=== PATIENT | male | born 1990 | race Caucasian/White ===

== ENCOUNTER 2020-02-16 09:34 | Emergency (ER) | payer OTHER, SELFPAY ==
[2020-02-16 09:41] VITALS: BP 127/63; PULSE 104; RESP 16; TEMP 36.8; O2SAT 96; BMI 23.6
--- NOTE | 2020-02-16 09:46 | XR_ITS ---
EXAMINATION: XR LUMBOSACRAL SPINE CLINICAL INFORMATION: Pain COMPARISON: Previous x-ray November 2011 TECHNIQUE: Three views of the lumbosacral spine. FINDINGS: Bone alignment is normal. No fracture or dislocation is seen. The disc spaces are normal. Paraspinal soft tissues are normal. XR/XR lumbar spine 2-3V IMPRESSION: Unremarkable examination.
--- NOTE | 2020-02-16 09:46 | ED.BACK ---
HPI - Back Pain/Injury General Chief Complaint: Back Pain/Injury Stated Complaint: BACK PAIN Time Seen by Provider: 02/16/20 09:46 Source: patient Mode of arrival: ambulatory Limitations: no limitations History of Present Illness MD elicited complaint: back pain Pertinent past history: prior back pain (not as bad) Onset (ago): week(s) (1) Timing: constant Severity: severe Similar Symptoms Previously: No Quality: aching and spasming Location: lumbar spine Radiation: none Exacerbating factors: movement, sitting upright and walking Relieving factors: none Context: unknown Associated symptoms: difficulty walking Treatments prior to arrival: other (topical lidocaine patch from pharmacy) Related Data Previous Rx's Medication Instructions Recorded diazepam [Valium] 5 mg PO TID PRN #10 tab 02/16/20 ibuprofen 600 mg PO Q6H PRN #30 tab 02/16/20 prednisone 40 mg PO DAILY 4 Days #8 tab 02/16/20 Allergies Allergy/AdvReac Type Severity Reaction Status Date / Time No Known Allergies Allergy Unverified 12/31/19 16:53 Review of Systems Review of Systems: Constitutional : No Weight loss, No Fever, No Chills, ENT/Mouth : No Hearing loss, No Ear Pain, No Nasal Congestion, No Sinus Pain, No Hoarseness, No sore throat, No Rhinorrhea, No Swallowing Difficulty Cardiovascular : No Chest Pain, No SOB Respiratory : No Cough, No Dyspnea Gastrointestinal : No Nausea, No Vomiting, No Diarrhea, No abdominal Pain, No Hematochezia, No Melena Genitourinary : No Dysuria, No Urinary Frequency, No Hematuria, No Urinary Incontinence, Musculoskeletal : positive back pain Skin : No Skin Lesions, No rash Neuro : No Weakness, No Numbness, No Paresthesias, no loss of bowel or bladder incontinence, no saddle anesthesia All other ROS reviewed and are negative PMFSH Past Medical History Attestation statement: The following information was validated with the patient. Medical History Substance abuse Social History Social History (Updated 02/16/20 @ 09:53 by Chichi Cronin DO) Smoking Status: Current every day smoker Use of substances other than those prescribed or required for medical reasons: Yes Substance Use Type: Crack/Cocaine and Marijuana Substance Use Type Other:: adamantly denies IV drug abuse Last Used Substance: Just Prior to Admission Advance Directives: No Advance Directives Information Provided: Yes Physical Exam Vital Signs: Vital Signs: Vital Signs Temp Pulse Resp BP Pulse Ox 02/16/20 10:40 98.2 F 77 16 118/67 02/16/20 09:41 98.2 F 104 H 16 127/63 96 Body Mass Index 23.6 Appearance: Alert. Oriented X3. No acute distress. In pain Eyes: Pupils equal, round and reactive to light. ENT: Pharynx normal. Neck: Normal inspection. Neck supple. CVS: Normal heart rate and rhythm. Pulses normal. Respiratory: No respiratory distress. Breath sounds normal. Abdomen: Soft and nontender. Back: ttp along lower lumbar pain, no CVA ttp Skin: Skin warm and dry. Normal skin color. Normal skin turgor. Extremities: No lower extremity edema. No calf ttp Neuro: Oriented X 3. No motor deficit. No sensory deficit. SILT inner thigh, L5 5/5 bilaterally Course Course Course Narrative: feels better, stable for DC MDM - Back Pain/Injury MDM Narrative Medical decision making narrative: 29 yo male with lower back pain no b/b incontinence, no saddle anesthesia, no fevers, NV intact, NO IVDA abuse at this time will need xray of lumbar spine, offered IV medications - declined, will start on valium and steroids, dispo per results and findings. Discharge Plan Discharge Clinical Impression: Strain of lumbar region Qualifiers: Encounter type: initial encounter Qualified Code(s): S39.012A - Strain of muscle, fascia and tendon of lower back, initial encounter Patient Disposition: Home, Self-Care Instructions: Acute Low Back Pain (ED) Additional Instructions: return to ED for any worsening symptoms or concerns Prescriptions: New prednisone 20 mg tablet 40 mg PO DAILY 4 Days Qty: 8 RF: 0 ibuprofen 600 mg tablet 600 mg PO Q6H PRN (Reason: pain) Qty: 30 RF: 0 diazepam [Valium] 5 mg tablet 5 mg PO TID PRN (Reason: muscle spasm) Qty: 10 RF: 0 Referrals: Gabe Cooley MD [Physician] - 2 days Herman Herrera MD [Physician] - 2 days (follow up with any provider) Leighann Gaona NP [Nurse Practitioner] - 2 days Stand Alone Forms: Work/School Release
[2020-02-16] MEDS: predniSONE 20 MG TABLET 60 MG PO (10:02)
[2020-02-16] MEDS: diazePAM 5 MG TABLET PO (10:02)
[2020-02-16 10:40] VITALS: BP 118/67; PULSE 77; RESP 16; TEMP 36.8
[2020-02-16 12:05] VITALS: BP 126/81; PULSE 79; RESP 18
== END 2020-02-16 12:07 | disposition home or self-care (01) ==
PROVIDERS: Emergency Provider Emergency Medicine
DX: S39.012A Strain of muscle, fascia and tendon of lower back, initial encounter (principal); F14.90 Cocaine use, unspecified, uncomplicated; F15.90 Other stimulant use, unspecified, uncomplicated; F17.200 Nicotine dependence, unspecified, uncomplicated; X58.XXXA Exposure to other specified factors, initial encounter; Y93.9 Activity, unspecified; Y92.9 Unspecified place or not applicable; Y99.9 Unspecified external cause status; Z79.899 Other long term (current) drug therapy; Z71.6 Tobacco abuse counseling
CPT/HCPCS: 72100; 96374; 96375; 99284

== ENCOUNTER 2020-05-09 21:31 | Emergency (ER) | payer OTHER, SELFPAY ==
[2020-05-09 21:32] VITALS: BP 106/84; BP 173/101; PULSE 115; PULSE 88; RESP 16; TEMP 36.7; O2SAT 97; O2SAT 99; BMI 28.8
--- NOTE | 2020-05-09 21:58 | ED_ITS ---
HPI - Overdose General Chief Complaint: Overdose Stated Complaint: overdose Time Seen by Provider: 05/09/20 21:58 Source: patient and EMS Mode of arrival: ambulatory History of Present Illness HPI Narrative: 29-year-old male brought in by ambulance after was found unintentionally/accidently overdosed on heroin, patient required 12 mg of Narcan given by EMS, patient emergency department is awake, alert, oriented x3 insisting to leave against medical advice after a lengthy discussion we will watch the patient for 30 minutes if he stay awake with stable vital sign will discharge. Patient attended to use 3 bags of her min by snoring. Related Data Previous Rx's Medication Instructions Recorded diazepam [Valium] 5 mg PO TID PRN #10 tab 02/16/20 ibuprofen 600 mg PO Q6H PRN #30 tab 02/16/20 prednisone 40 mg PO DAILY 4 Days #8 tab 02/16/20 Allergies Allergy/AdvReac Type Severity Reaction Status Date / Time No Known Allergies Allergy Unverified 12/31/19 16:53 Review of Systems Review of Systems: All other systems are reviewed and are negative Constitutional: Reports as per HPI and Reports no additional constitutional complaints Eyes: Reports as per HPI and Reports no additional eye complaints Reports system reviewed and no additional complaints, except as documented Cardiovascular: Reports as per HPI and Reports no additional cardiovascular complaints Respiratory: Reports as per HPI and Reports no additional respiratory complaints Gastrointestinal: Reports as per HPI and Reports no additional gastrointestinal complaints Genitourinary: Reports no additional female genitourinary complaints Musculoskeletal: Reports no additional musculoskeletal complaints Skin/Breast: Reports system reviewed and no additional complaints, except as docu Psychiatric: Reports no additional psychiatric complaints Endocrine: Reports no additional endocrine complaints Hematologic/Lymphatic: Reports no additional hematologic/lymphatic complaints Allergic/Immunologic: Reports no additional allergic/immunologic complaints Reports system reviewed and no additional complaints, except as documented and Reports Abnormal speech present [facility] Past Medical History Medical History Substance abuse Social History Social History Smoking Status: Current every day smoker Substance Use Type: Crack/Cocaine and Marijuana Advance Directives: No Advance Directives Information Provided: No Physical Exam Vital Signs: Vital Signs: Last Vital Signs Temp 98.0 F 01/25/21 21:32 Pulse 88 05/09/20 21:32 Resp 16 05/09/20 21:32 BP 106/84 05/09/20 21:32 Pulse Ox 99 05/09/20 21:32 Body Mass Index 28.8 Vital signs have been reviewed as normal and appeared to be correct. Blood pressure normal. Heart rate normal. Respiration rate normal. Temperature normal. Oxygen saturation normal. Appearance: Alert. Oriented X3. No acute distress. Head: Normal external exam. Normocephalic. Atraumatic. No Amos signs noted. No raccoon eyes noted Eyes: PERRLA. EOMI. Conjunctiva and sclera normal. Eyelids normal. ENT: EAC normal. TM's Normal. Pharynx normal. Uvula midline. Moist mucous membranes. No trismus noted. No drooling noted. No muffled voice noted. Neck: Normal inspection. Neck supple. FROM. No adenopathy. Thyroid Normal. No meningeal signs. No neck mass noted. CVS: Normal heart rate and rhythm. Heart sound normal. No murmurs noted. Pulses normal throughout. Respiratory: No respiratory distress. Painless inspiration. Breath sounds normal. No wheezes/rales/rhonchi noted. Chest nontender. No accessory muscle usage noted or decreased air movement noted. Abdomen: Soft and nontender. Bowel sounds normal in all 4 quadrants. No distention noted. No organomegaly noted. No visible injury noted. Back: No CVA tenderness. Full range of motion noted. Skin: Skin warm and dry. Normal skin color. Normal skin turgor. No rashes/lesions/lacerations noted. Extremities: No lower extremity edema. Extremities exhibit normal range of motion. Extremities nontender. Neuro: Oriented X 3. No motor deficit. No sensory deficit. Reflexes normal. Course Course Course Narrative: Assessment and plan. [age] year male came in after accidentally overdosed on 3 bags of heroin, patient required 12 mg of Narcan at the scene, patient emergency department is awake, alert, oriented x3, patient wants to go home now, after lengthy discussion will observe the patient for the next 30 minutes if he maintained stable vital signs and normal exam will discharge home. Discharge Plan Discharge Clinical Impression: Accidental overdose of heroin Patient Disposition: Home, Self-Care Instructions: Polysubstance Abuse (ED) Prescriptions: No Action prednisone 20 mg tablet 40 mg PO DAILY 4 Days Qty: 8 RF: 0 ibuprofen 600 mg tablet 600 mg PO Q6H PRN (Reason: pain) Qty: 30 RF: 0 diazepam [Valium] 5 mg tablet 5 mg PO TID PRN (Reason: muscle spasm) Qty: 10 RF: 0 Referrals: Physician,Unknown [Primary Care Provider] - 2 days Interventions: ED Discharge Assessment Last Done: 05/09/20 21:59
[2020-05-09 22:29] VITALS: BP 106/84; PULSE 88; RESP 15; TEMP 36.7; O2SAT 99
== END 2020-05-09 22:40 | disposition home or self-care (01) ==
PROVIDERS: Emergency Provider Emergency Medicine
DX: T40.1X1A Poisoning by heroin, accidental (unintentional), initial encounter (principal); Y92.9 Unspecified place or not applicable; F17.200 Nicotine dependence, unspecified, uncomplicated; F19.10 Other psychoactive substance abuse, uncomplicated
CPT/HCPCS: 99283; 99285

== ENCOUNTER 2020-05-22 01:27 | Emergency (ER) | payer OTHER, SELFPAY ==
[2020-05-22 01:38] VITALS: BMI 23.6
[2020-05-22 01:40] VITALS: RESP 16
[2020-05-22 01:55] VITALS: RESP 16
[2020-05-22 01:59] VITALS: RESP 16
[2020-05-22 02:04] VITALS: RESP 16
--- NOTE | 2020-05-22 02:10 | PC.NURSE ---
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 PATIENT PLACED IN 4 POINTS AND SPIT BELCHER APPLIED. MD AT BEDSIDE FOR EVALUATION. PATIENT SWEARING AND SPITTING. AFTER ABOUT 5 MINUTES PATIENT PROMISING TO BE CALM AND COOPERATIVE WITH CARE. MD REEVALUATING PATIENT TRIALLED OFF OF RESTRAINTS. PATIENT ABLE TO COME OUT OF RESTRAINTS WITHOUT INCIDENT.
--- NOTE | 2020-05-22 02:16 | ED_ITS ---
HPI - General Adult General Chief complaint: Overdose Stated complaint: overdose Time Seen by Provider: 05/22/20 02:15 Source: patient and EMS Mode of arrival: EMS Limitations: no limitations History of Present Illness HPI narrative: This is a 29-year-old male brought in by ambulance after was found unresponsive with a potential suspicion of drug overdose, patient received 12 mg of Narcan in the field and was transported to the hospital, in the emergency department patient was belligerent, aggressive, spitting and swinging to the security staff, patient require 4 point soft strain and face mask, was able to talk to the patient and come down, restrained was discontinued gradually limp by limp after 50 minutes. Patient admitted to using 2 bags of heroin. Patient declined SI or HI. Related Data Previous Rx's Medication Instructions Recorded diazepam [Valium] 5 mg PO TID PRN #10 tab 02/16/20 ibuprofen 600 mg PO Q6H PRN #30 tab 02/16/20 prednisone 40 mg PO DAILY 4 Days #8 tab 02/16/20 Allergies Allergy/AdvReac Type Severity Reaction Status Date / Time No Known Allergies Allergy Unverified 12/31/19 16:53 Review of Systems Review of Systems: All other systems are reviewed and are negative Constitutional: Reports as per HPI and Reports no additional constitutional complaints Eyes: Reports as per HPI and Reports no additional eye complaints Reports system reviewed and no additional complaints, except as documented Cardiovascular: Reports as per HPI and Reports no additional cardiovascular complaints Respiratory: Reports as per HPI and Reports no additional respiratory complaints Gastrointestinal: Reports as per HPI and Reports no additional gastrointestinal complaints Genitourinary: Reports no additional female genitourinary complaints Musculoskeletal: Reports no additional musculoskeletal complaints Skin/Breast: Reports system reviewed and no additional complaints, except as docu Psychiatric: Reports no additional psychiatric complaints Endocrine: Reports no additional endocrine complaints Hematologic/Lymphatic: Reports no additional hematologic/lymphatic complaints Allergic/Immunologic: Reports no additional allergic/immunologic complaints Reports system reviewed and no additional complaints, except as documented and Reports Abnormal speech present [facility] [place] Past Medical History Medical History Substance abuse Social History Social History Smoking Status: Unknown if ever smoked Use of substances other than those prescribed or required for medical reasons: Yes Substance Use Type: Heroin Advance Directives: No Advance Directives Information Provided: No Physical Exam Vital Signs: Vital Signs: Last Vital Signs Pulse 76 05/22/20 03:52 Resp 16 05/22/20 03:52 BP 102/45 L 05/22/20 03:52 Pulse Ox 95 05/22/20 03:52 Body Mass Index 23.6 Vital signs have been reviewed as normal and appeared to be correct. Blood pressure normal. Heart rate normal. Respiration rate normal. Temperature normal. Oxygen saturation normal. Appearance: Alert. Oriented X3. No acute distress. Initially patient was belligerent, with compulsive behavior. Head: Normal external exam. Normocephalic. Atraumatic. No Amos signs noted. No raccoon eyes noted Eyes: PERRLA. EOMI. Conjunctiva and sclera normal. Eyelids normal. ENT: TM's Normal. Pharynx normal. Uvula midline. Moist mucous membranes. No trismus noted. No drooling noted. No muffled voice noted. Neck: Normal inspection. Neck supple. FROM. No adenopathy. Thyroid Normal. No meningeal signs. No neck mass noted. CVS: Normal heart rate and rhythm. Heart sound normal. No murmurs noted. Pulses normal throughout. Respiratory: No respiratory distress. Painless inspiration. Breath sounds normal. No wheezes/rales/rhonchi noted. Chest nontender. No accessory muscle usage noted or decreased air movement noted. Abdomen: Soft and nontender. Bowel sounds normal in all 4 quadrants. No distention noted. No organomegaly noted. No visible injury noted. Back: No CVA tenderness. Full range of motion noted. Skin: Skin warm and dry. Normal skin color. Normal skin turgor. No rashes/lesions/lacerations noted. Extremities: No lower extremity edema. Extremities exhibit normal range of motion. Extremities nontender. Neuro: Oriented X 3. No motor deficit. No sensory deficit. Reflexes normal. Course Reevaluation(s) Reevaluation #1: Patient is off 4 point restraint, patient now is calm, cooperative, coherent, following commands, and willing to stay in the ED until he is ready to discharge. Time: 02:40 Reevaluation #2: Patient slept most of the night, patient remained calm, cooperative and coherent. Patient now is awake and alert and oriented x3. Patient would like to go home, Suboxone [facility] was discussed with the patient and patient declined. Time: 05:12 Discharge Plan Discharge Clinical Impression: Drug overdose Patient Disposition: Home, Self-Care Instructions: Polysubstance Abuse (ED) Prescriptions: No Action prednisone 20 mg tablet 40 mg PO DAILY 4 Days Qty: 8 RF: 0 ibuprofen 600 mg tablet 600 mg PO Q6H PRN (Reason: pain) Qty: 30 RF: 0 diazepam [Valium] 5 mg tablet 5 mg PO TID PRN (Reason: muscle spasm) Qty: 10 RF: 0 Referrals: Elke Harrell MD [Primary Care Provider] - 2 days
[2020-05-22 02:25] VITALS: BP 109/59; PULSE 95; RESP 18; O2SAT 97
--- NOTE | 2020-05-22 02:54 | PC.NURSE ---
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 PT PLACED ON RESTRAINTS AND MONITORED FOR SAFETY. PROVIDER IN TO DISCUSS REMOVAL OF RESTRAINS IF COOPERATIVE. PT IS COOPERATIVE AND RESTRAINTS REMOVED. PT IS SLEEPING AND BEING MONITORED
[2020-05-22 03:52] VITALS: BP 102/45; PULSE 76; RESP 16; O2SAT 95
== END 2020-05-22 05:25 | disposition home or self-care (01) ==
PROVIDERS: Emergency Provider Emergency Medicine; PCP Internal Medicine
DX: T40.1X1A Poisoning by heroin, accidental (unintentional), initial encounter (principal); R40.4 Transient alteration of awareness; X58.XXXA Exposure to other specified factors, initial encounter; F19.10 Other psychoactive substance abuse, uncomplicated
CPT/HCPCS: 99285

== ENCOUNTER 2020-05-26 22:36 | Emergency (ER) | payer OTHER, SELFPAY ==
[2020-05-26 22:48] VITALS: BP 120/78; BP 127/69; PULSE 79; PULSE 88; RESP 20; TEMP 36.6; O2SAT 97; O2SAT 98; BMI 23.6
--- NOTE | 2020-05-26 23:17 | ED.ALCOHOL ---
HPI - Alcohol General Chief Complaint: ETOH/Substance Use Stated Complaint: crisis Time Seen by Provider: 05/26/20 23:10 Source: patient Mode of arrival: ambulatory History of Present Illness HPI narrative: 29-year-old male with a past medical history of ETOH abuse, substance abuse, presenting to the ED per EMS s/p breaking up with his girlfriend in stating I am done with everything in girlfriend calling 911 taking this as suicidal statement. Patient admits to smoking marijuana and drinking a couple beers tonight. Denies SI/HI, fall/trauma or injury. 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 Has a sober ride in the parking lot complaint: alcohol intoxication Related Data Previous Rx's Medication Instructions Recorded diazepam [Valium] 5 mg PO TID PRN #10 tab 02/16/20 ibuprofen 600 mg PO Q6H PRN #30 tab 02/16/20 prednisone 40 mg PO DAILY 4 Days #8 tab 02/16/20 Allergies Allergy/AdvReac Type Severity Reaction Status Date / Time No Known Allergies Allergy Unverified 12/31/19 16:53 Review of Systems Review of Systems: Constitutional: No Fever, No Chills Cardiovascular: No Chest Pain, No SOB Gastrointestinal: No Nausea, No Vomiting, No Abdominal pain Musculoskeletal: No joint pain, No Joint Swelling Skin: No Skin Lesions, No rash Neuro: No Headache Psych: No Depression, No SI/HI/AH/VH, No Social Issues Yes all other systems are reviewed and are negative [facility] Past Medical History Attestation statement: The following information was validated with the patient. Medical History Substance abuse Social History Social History Smoking Status: Unknown if ever smoked Substance Use Type: Heroin Advance Directives: No Physical Exam Vital Signs: Vital Signs: Last Vital Signs Temp 97.9 F 05/26/20 22:48 Pulse 79 05/26/20 22:48 Resp 20 05/26/20 22:48 BP 127/69 05/26/20 22:48 Pulse Ox 97 05/26/20 22:48 Body Mass Index 23.6 Const: General: cooperative, healthy appearing, comfortable, no acute distress, alert and awake Orientation/consciousness: patient oriented x3 Limitations: no limitations HENMT: Head: Yes normal to inspection Ears: hearing grossly normal bilaterally General nose exam: Normal external nose present Face and sinus: Yes normal facial exam Eyes: General: appearance normal, both eyes and all related structures Pupils: Equal, round and reactive pupils present EOM: EOMs intact bilaterally Neck: Neck: Yes normal visual inspection Resp: Effort & Inspection: normal respiratory effort Cardio: Rate: regular rate GI: Inspection: Yes normal to inspection Skin: Rashes: no rashes Wounds: no wounds Neuro: Other: Clinically sober, ambulating in the ED with steady gait General: patient oriented x3 Cranial nerves: Yes Equal, round and reactive pupils present Gait exam (Neuro): Normal gait present Extrem: Other: GIMENEZ General: Yes normal to inspection Psych: Appearance: grossly normal Affect: normal affect Attitude: cooperative Thought process: Normal thought process present Thought content: Normal thought content present, suicidality and no homicidality MDM - Alcohol MDM Narrative Medical decision making narrative: On exam VSS, NAD/well-appearing, moving all extremities, atraumatic, clinically sober, ambulating in the ED with steady gait. Denies SI/HI Will discharge with sober ride Medical Records Attestation: I reviewed the patient's medical records. Discharge Plan Discharge Clinical Impression: Alcoholic intoxication Patient Disposition: Home, Self-Care Instructions: Alcohol Intoxication (ED) Additional Instructions: do not drink alcohol or take drugs it can kill you If you have thoughts of hurting herself or hurting others return to the ED Prescriptions: No Action prednisone 20 mg tablet 40 mg PO DAILY 4 Days Qty: 8 RF: 0 ibuprofen 600 mg tablet 600 mg PO Q6H PRN (Reason: pain) Qty: 30 RF: 0 diazepam [Valium] 5 mg tablet 5 mg PO TID PRN (Reason: muscle spasm) Qty: 10 RF: 0 Referrals: Physician,Unknown [Primary Care Provider] - 2 days
== END 2020-05-26 23:30 | disposition home or self-care (01) ==
PROVIDERS: Emergency Provider Student in an Organized Health Care Education/Training Program
DX: F10.129 Alcohol abuse with intoxication, unspecified (principal); F11.10 Opioid abuse, uncomplicated; F12.90 Cannabis use, unspecified, uncomplicated; Y90.9 Presence of alcohol in blood, level not specified; Z79.899 Other long term (current) drug therapy
CPT/HCPCS: 99283

== ENCOUNTER 2020-05-31 07:44 | Emergency (ER) | payer OTHER, SELFPAY ==
[2020-05-31 07:58] VITALS: BP 130/78; PULSE 74; RESP 16; O2SAT 98; BMI 21.5
--- NOTE | 2020-05-31 08:04 | ED_ITS ---
HPI - Extremity Problem General Chief complaint: Extremity Problem Stated complaint: feet swollen Time Seen by Provider: 05/31/20 08:04 Source: patient Mode of arrival: ambulatory Limitations: no limitations History of Present Illness HPI Narrative: both feet swollen, patient uses cocaine and heroine Complaint: extremity swelling Onset (ago): day(s) Pain Consistency: constant Location: left, right and lower extremity Quality: burning and stabbing Related Data Previous Rx's Medication Instructions Recorded diazepam [Valium] 5 mg PO TID PRN #10 tab 02/16/20 ibuprofen 600 mg PO Q6H PRN #30 tab 02/16/20 prednisone 40 mg PO DAILY 4 Days #8 tab 02/16/20 Allergies Allergy/AdvReac Type Severity Reaction Status Date / Time No Known Allergies Allergy Unverified 12/31/19 16:53 Review of Systems Constitutional: Constitutional: Reports no additional constitutional complaints Eyes: Eyes: Reports no additional eye complaints ENT: Denies dizziness Cardiovascular: Cardiovascular: Reports no additional cardiovascular complaints Respiratory: Respiratory: Reports as per HPI Gastrointestinal: Gastrointestinal: Reports no additional gastrointestinal complaints Musculoskeletal: Musculoskeletal: Reports no additional musculoskeletal complaints Integumentary/Breasts: Skin/Breast: Denies rash Neurologic: Reports system reviewed and no additional complaints, except as documented, Denies dizziness and Denies Sensory deficit (Neuro) Psychiatric: Psychiatric: Denies anxiety [facility] Past Medical History Medical History Substance abuse Social History Social History Smoking Status: Unknown if ever smoked Substance Use Type: Heroin Advance Directives: Yes Advance Directives Information Provided: Yes Advance Directives on File: No Physical Exam Vital Signs: Vital Signs: Last Vital Signs Temp 98.6 F 05/31/20 09:19 Pulse 67 05/31/20 09:19 Resp 16 05/31/20 09:19 BP 120/56 L 05/31/20 09:19 Pulse Ox 97 05/31/20 09:19 Body Mass Index 21.5 Const: Other: thin unkept Nutritional Appearance: thin Orientation/consciousness: oriented to person and patient oriented x3 Limitations: no limitations HENMT: Head: Yes normal to inspection Ears: external ears normal General nose exam: Normal external nose present Mouth: Normal oral and palatal mucosa present and oropharynx normal Throat: Yes posterior oropharynx normal Eyes: General: appearance normal, both eyes and all related structures Neck: Other: supple Neck: Yes normal visual inspection Chest: Chest palpation & inspection: normal inspection of the chest Resp: Auscultation: clear to auscultation bilaterally Cardio: Jugular venous distension: no JVD Rate: regular rate Rhythm: regular rhythm Heart sounds: S1 normal heart sound present and S2 normal heart sound present GI: Inspection: Yes normal to inspection Palpation (GI): Soft to palpation, nontender and No hepatosplenomegaly present Auscultation: normal bowel sounds : General: Yes no CVA tenderness Back/Spine/Pelvis: Back: no CVA tenderness Skin: Other: erythema greater in left foot and left ankle Neuro: General: oriented to person and patient oriented x3 Cranial nerves: Yes CN's II-XII intact bilaterally Motor exam (neuro): 5/5 motor strength present throughout Sensory Exam: No Sensory deficit (Neuro) Extrem: Other: Both feet swollen with left greater than right and left foot redness. Good bilateral DP pulses Psych: Appearance: grossly normal Course Course Course Narrative: with elevated WBC and erythema will continue to treat for cellulitis MDM - Extremity (Nontraumatic) MDM Narrative Medical decision making narrative: cellulitis no evidence of sepsis Lab Data Result diagrams: 05/31/20 08:38 05/31/20 08:38 Labs: Lab Results 05/31/20 05/31/20 05/31/20 Range/Units 08:38 08:38 08:38 WBC 12.4 H (4.8-10.8) X10*3/uL RBC 4.47 L (4.60-5.80) X10*6/uL Hgb 15.1 (14.0-18.0) g/dl Hct 46.3 (42-52) % MCV 103.6 H (80-98) fL MCH 33.8 H (27.0-33.0) pg MCHC 32.6 (31.0-36.0) g/dl RDW 11.9 (11.0-16.0) % Plt Count 269 (160-400) X10*3/uL MPV 9.8 (9.4-12.4) fL Immature Gran % (Auto) 0.3 (0.0-0.4) % Neut % (Auto) 81.7 H (45-73) % Lymph % (Auto) 6.5 L (20-40) % [place] % (Auto) 10.1 (2-11) % Eos % (Auto) 0.8 (0-4) % Baso % (Auto) 0.6 (0-2) % Lymph # (Auto) 0.8 L (1.2-4.9) X10*3/uL [place] # (Auto) 1.3 H (0.1-1.2) X10*3/uL Eos # (Auto) 0.1 (0.0-0.4) X10*3/uL Baso # (Auto) 0.1 (0.0-0.2) X10*3/uL Abs Immat Gran (auto) 0.04 H (0.00-0.03) X10*3/uL Absolute Neuts (auto) 10.2 H (2.0-8.3) X10*3/uL Absolute Nucleated RBC 0.000 (0.0-0.012) X10*3/uL Nucleated RBC % (auto) 0.0 (0.0-0.2) /100WBC Sodium 138 (135-145) mmol/L Potassium 4.3 (3.3-5.1) mmol/L Chloride 97 (96-108) mmol/L Carbon Dioxide 32 H (22-29) mmol/L Anion Gap 13 (12-20) BUN 13 (9-16) mg/dL Creatinine 0.89 (0.5-1.4) mg/dL Estim Creat Clear Calc 115.7 Estimated GFR > 60 Random Glucose 100 (60-115) mg/dL Calcium 9.4 (8.4-10.2) mg/dL Total Bilirubin 0.9 (0.0-1.0) mg/dL Direct Bilirubin 0.3 (0.0-0.5) mg/dL AST 23 (5-37) U/L ALT 13 (0-40) U/L Alkaline Phosphatase 74 (39-117) U/L Total Creatine Kinase 181 H (38-174) U/L Total Protein 7.5 (6.5-8.0) g/dL Albumin 4.6 (3.5-5.0) g/dL Urine Color Urine Appearance Urine pH (5.0-8.0) Ur Specific Ethel (1.005-1.025) Urine Protein (NEG-TRACE) MG/DL Urine Glucose (UA) (NEG) MG/DL Urine Ketones (NEG) MG/DL Urine Blood (NEG) Urine Nitrite (NEG) Ur Leukocyte Esterase (NEG) 05/31/20 Range/Units 10:36 WBC (4.8-10.8) X10*3/uL RBC (4.60-5.80) X10*6/uL Hgb (14.0-18.0) g/dl Hct (42-52) % MCV (80-98) fL MCH (27.0-33.0) pg MCHC (31.0-36.0) g/dl RDW (11.0-16.0) % Plt Count (160-400) X10*3/uL MPV (9.4-12.4) fL Immature Gran % (Auto) (0.0-0.4) % Neut % (Auto) (45-73) % Lymph % (Auto) (20-40) % [place] % (Auto) (2-11) % Eos % (Auto) (0-4) % Baso % (Auto) (0-2) % Lymph # (Auto) (1.2-4.9) X10*3/uL [place] # (Auto) (0.1-1.2) X10*3/uL Eos # (Auto) (0.0-0.4) X10*3/uL Baso # (Auto) (0.0-0.2) X10*3/uL Abs Immat Gran (auto) (0.00-0.03) X10*3/uL Absolute Neuts (auto) (2.0-8.3) X10*3/uL Absolute Nucleated RBC (0.0-0.012) X10*3/uL Nucleated RBC % (auto) (0.0-0.2) /100WBC Sodium (135-145) mmol/L Potassium (3.3-5.1) mmol/L Chloride (96-108) mmol/L Carbon Dioxide (22-29) mmol/L Anion Gap (12-20) BUN (9-16) mg/dL Creatinine (0.5-1.4) mg/dL Estim Creat Clear Calc Estimated GFR Random Glucose (60-115) mg/dL Calcium (8.4-10.2) mg/dL Total Bilirubin (0.0-1.0) mg/dL Direct Bilirubin (0.0-0.5) mg/dL AST (5-37) U/L ALT (0-40) U/L Alkaline Phosphatase (39-117) U/L Total Creatine Kinase (38-174) U/L Total Protein (6.5-8.0) g/dL Albumin (3.5-5.0) g/dL Urine Color YELLOW Urine Appearance CLEAR Urine pH 5.5 (5.0-8.0) Ur Specific Ethel <= 1.005 (1.005-1.025) Urine Protein NEG (NEG-TRACE) MG/DL Urine Glucose (UA) NEG (NEG) MG/DL Urine Ketones NEG (NEG) MG/DL Urine Blood NEG (NEG) Urine Nitrite NEG (NEG) Ur Leukocyte Esterase NEG (NEG) Discharge Plan Discharge Prescriptions: No Action prednisone 20 mg tablet 40 mg PO DAILY 4 Days Qty: 8 RF: 0 ibuprofen 600 mg tablet 600 mg PO Q6H PRN (Reason: pain) Qty: 30 RF: 0 diazepam [Valium] 5 mg tablet 5 mg PO TID PRN (Reason: muscle spasm) Qty: 10 RF: 0
--- NOTE | 2020-05-31 08:21 | PC.NURSE ---
pt has swelling edema bilaterally in both feet. pedal pulses and posterior tibialis pulses located with Doppler in both extremities.
[2020-05-31 08:45] LABS: MANUAL DIFF FLAG NO
[2020-05-31 08:46] LABS: Basophils Absolute Auto 0.1 X10*3/uL (0.0-0.2); Basophils Percent Auto 0.6 % (0-2); Eosinophils Absolute Auto 0.1 X10*3/uL (0.0-0.4); Eosinophils Percent Auto 0.8 % (0-4); Hematocrit 46.3 % (42-52); Hemoglobin 15.1 g/dl (14.0-18.0); Imm Gran Abs Auto 0.04 X10*3/uL (0.00-0.03); Imm Gran Pct Auto 0.3 % (0.0-0.4); Lymphocytes Absolute Auto 0.8 X10*3/uL (1.2-4.9); Lymphocytes Percent Auto 6.5 % (20-40); Mean Corpuscular HGB Conc 32.6 g/dl (31.0-36.0); Mean Corpuscular Hemoglobin 33.8 pg (27.0-33.0); Mean Corpuscular Volume 103.6 fL (80-98); Mean Platelet Volume 9.8 fL (9.4-12.4); Monocytes Absolute Auto 1.3 X10*3/uL (0.1-1.2); Monocytes Percent Auto 10.1 % (2-11); Neutrophils Absolute Auto 10.2 X10*3/uL (2.0-8.3); Neutrophils Percent Auto 81.7 % (45-73); Platelet Count 269 X10*3/uL (160-400); Red Blood Count 4.47 X10*6/uL (4.60-5.80); Red Cell Distribution Width 11.9 % (11.0-16.0); White Blood Count 12.4 X10*3/uL (4.8-10.8)
[2020-05-31] MEDS: Ketorolac Tromethamine 30 MG/ML VIAL IVPUSH (08:50)
[2020-05-31 09:19] VITALS: BP 120/56; PULSE 67; RESP 16; TEMP 37; O2SAT 97
--- NOTE | 2020-05-31 09:23 | MHC.RECOVSUP ---
Recovery Support note: Patient is a 29 year old Mauritanian speaking male who presented to [facility] ED due to ankle swelling. Patient reports recent heroin use. This principal technical writer met with patient to discuss his heroin use and treatment options. Patient reports a desire to stop using heroin and states that he has not made any efforts to stop in the past. Patient reports he is interested in going to detox however reported he may not be ready to go today. Explained to patient the process of getting into a detox facility. Discussed MAT with patient. Patient reports he is not interested in methadone or Suboxone at this time. Discussed outpatient therapy and IOP with patient. Patient accepted information on IOP and [facility]. Patient reports he is currently seeing a therapist. Provided patient with information to contact this principal technical writer if he would like additional support info or assistance securing a detox bed.
[2020-05-31 09:27] LABS: Alanine Aminotransferase 13 U/L (0-40); Albumin Level 4.6 g/dL (3.5-5.0); Alkaline Phosphatase 74 U/L (39-117); Anion Gap 13 (12-20); Aspartate Amino Transferase 23 U/L (5-37); Bilirubin Direct 0.3 mg/dL (0.0-0.5); Bilirubin Total 0.9 mg/dL (0.0-1.0); Blood Urea Nitrogen 13 mg/dL (9-16); Calcium 9.4 mg/dL (8.4-10.2); Carbon Dioxide 32 mmol/L (22-29); Chloride 97 mmol/L (96-108); Creatinine Clr Calc Pharmacy 115.7; Estimated Glomerular Filt Rate > 60; Glucose Random 100 mg/dL (60-115); Potassium 4.3 mmol/L (3.3-5.1); Sodium 138 mmol/L (135-145); Total Protein 7.5 g/dL (6.5-8.0)
[2020-05-31 10:47] LABS: Glucose Urine UA NEG (NEG); Leukocyte Esterase Urine NEG (NEG); Nitrite Urine NEG (NEG); PH 5.5 (5.0-8.0); Specific Gravity - Urine <= 1.005 (1.005-1.025); Urine Blood NEG (NEG); Urine Ketones NEG (NEG); Urine Protein NEG (NEG-TRACE)
[2020-05-31 10:51] LABS: Appearance Urine CLEAR; Color Urine YELLOW
[2020-05-31 10:59] VITALS: BP 113/61; PULSE 72; RESP 16; TEMP 36.9; O2SAT 95
== END 2020-05-31 11:26 | disposition home or self-care (01) ==
PROVIDERS: Emergency Provider Emergency Medicine
DX: L03.116 Cellulitis of left lower limb (principal); L03.115 Cellulitis of right lower limb; F19.10 Other psychoactive substance abuse, uncomplicated
CPT/HCPCS: 36415; 80048; 80076; 81003; 82550; 85025; 96365; 96375; 99284; J0690; J1885

== ENCOUNTER 2020-10-06 06:33 | Emergency (ER) | payer OTHER, SELFPAY ==
[2020-10-06 06:41] VITALS: BP 121/71; PULSE 86; RESP 18; TEMP 36.7; O2SAT 95; BMI 23.6
--- NOTE | 2020-10-06 07:45 | ED_ITS ---
HPI - Back Pain/Injury General Chief Complaint: Back Pain/Injury Stated Complaint: injured back @ work [employer] Time Seen by Provider: 10/06/20 07:45 Source: patient Mode of arrival: ambulatory Limitations: no limitations History of Present Illness HPI Narrative: 30 yo male otherwise healthy here with lifting injury to low back on Saturday at his new job causing severe worsening pain as well as some tingling in his L leg, no prior injuries like this in the past but after review of EMR the patient has been seen for back pain in the past as well as using heroin MD elicited complaint: back injury Pertinent past history: prior back pain Onset (ago): day(s) (2) Timing: constant and progressively worsening Severity: severe Similar Symptoms Previously: Yes Quality: sharp Location: lumbar spine Radiation: left leg below the knee Exacerbating factors: movement, walking and coughing/sneezing Relieving factors: immobilization Context: while lifting Associated symptoms: numbness (feels tingling in his left foot) Work related injury: Yes Related Data Previous Rx's Medication Instructions Recorded diazepam [Valium] 5 mg PO TID PRN #10 tab 02/16/20 ibuprofen 600 mg PO Q6H PRN #30 tab 02/16/20 prednisone 40 mg PO DAILY 4 Days #8 tab 02/16/20 cephalexin 500 mg PO QID #40 cap 05/31/20 diazepam [Valium] 5 mg PO TID PRN #10 tab 10/06/20 ibuprofen 600 mg PO Q6H PRN #30 tab 10/06/20 lidocaine 1 patch TOPICAL DAILY PRN #10 ea 10/06/20 prednisone 40 mg PO DAILY 4 Days #8 tab 10/06/20 Allergies Allergy/AdvReac Type Severity Reaction Status Date / Time No Known Allergies Allergy Unverified 12/31/19 16:53 Review of Systems Review of Systems: Constitutional : No Weight loss, No Fever, No Chills, ENT/Mouth : No Hearing loss, No Ear Pain, No Nasal Congestion, No Sinus Pain, No Hoarseness, No sore throat, No Rhinorrhea, No Swallowing Difficulty Cardiovascular : No Chest Pain, No SOB Respiratory : No Cough, No Dyspnea Gastrointestinal : No Nausea, No Vomiting, No Diarrhea, No abdominal Pain, No Hematochezia, No Melena Genitourinary : No Dysuria, No Urinary Frequency, No Hematuria, No Urinary Incontinence, Musculoskeletal : positive back pain Skin : No Skin Lesions, No rash Neuro : No Weakness, No Numbness, pos Paresthesias, no loss of bowel or bladder incontinence, no saddle anesthesia PMF Past Medical History Attestation statement: The following information was validated with the patient. Medical History Back pain Substance abuse Social History Social History (Updated 10/06/20 @ 08:09 by Chichi Cronin DO) Alcohol intake: unknown Patient Tobacco Use Status: Tobacco use Unknown Use of substances other than those prescribed or required for medical reasons: Unknown Substance Use Type: Former Substance User Advance Directives: No Advance Directives Information Provided: No Physical Exam Vital Signs: Vital Signs: Last Vital Signs Temp 98.0 F 10/06/20 06:41 Pulse 86 10/06/20 06:41 Resp 18 10/06/20 06:41 BP 121/71 10/06/20 06:41 Pulse Ox 95 10/06/20 06:41 Body Mass Index 23.6 Appearance: Alert. Oriented X3. No acute distress. Anxious Eyes: Pupils equal, round and reactive to light. ENT: Pharynx normal. Neck: Normal inspection. Neck supple. CVS: Normal heart rate and rhythm. Pulses normal. Respiratory: No respiratory distress. Breath sounds normal. Abdomen: Soft and nontender. Back: moderate lumbar ttp Skin: Skin warm and dry. Normal skin color. Normal skin turgor. Extremities: No lower extremity edema. No calf ttp Neuro: Oriented X 3. No motor deficit. No sensory deficit. SILT inner thight, 2+ PT reflexes, motor intact lower extremities Course Course Course Narrative: the patient has his legs bent up no distress, drinking coffee, will attempt ambulation trial. feels much better at this time MDM - Back Pain/Injury MDM Narrative Medical decision making narrative: 30 yo male hx of back pain and prior substance abuse denies IVDA here with lifting injury at work no b/b incontinence, no saddle anesthesia, some tingling in LLE but he is intact on my exam, no CE symptoms at this time will need supportive medications, discussed expectant course with him, doubt epidural abscess at this time Discharge Plan Discharge Clinical Impression: Lumbar radiculopathy Patient Disposition: Home, Self-Care Instructions: Lumbar Radiculopathy (ED) Additional Instructions: return to ED for any worsening symptoms or concerns Prescriptions: New lidocaine 4 % adhesive patch,medicated 1 patch topical DAILY PRN (Reason: pain) Qty: 10 RF: 0 ibuprofen 600 mg tablet 600 mg PO Q6H PRN (Reason: pain) Qty: 30 RF: 0 diazepam [Valium] 5 mg tablet 5 mg PO TID PRN (Reason: muscle spasm) Qty: 10 RF: 0 prednisone 20 mg tablet 40 mg PO DAILY 4 Days Qty: 8 RF: 0 No Action prednisone 20 mg tablet 40 mg PO DAILY 4 Days Qty: 8 RF: 0 ibuprofen 600 mg tablet 600 mg PO Q6H PRN (Reason: pain) Qty: 30 RF: 0 diazepam [Valium] 5 mg tablet 5 mg PO TID PRN (Reason: muscle spasm) Qty: 10 RF: 0 cephalexin 500 mg capsule 500 mg PO QID Qty: 40 RF: 0 Referrals: Ann Reyes MD [Primary Care Provider] - 1 day Tabatha Leon PA [Physician Production Sampler] - 2 days (call for appointment) Stand Alone Forms: Work/School Release
[2020-10-06] MEDS: Lidocaine 4 % Patch ADH..PATCH 2 PATCH TRANSDERMA (08:23)
[2020-10-06] MEDS: diazePAM 5 MG TABLET PO (08:24)
[2020-10-06] MEDS: predniSONE 20 MG TABLET 60 MG PO (08:24)
[2020-10-06] MEDS: Ketorolac Tromethamine 60 MG/2 ML VIAL IM (08:24)
== END 2020-10-06 10:18 | disposition home or self-care (01) ==
PROVIDERS: Emergency Provider Emergency Medicine; PCP Internal Medicine
DX: M54.16 Radiculopathy, lumbar region (principal); F19.10 Other psychoactive substance abuse, uncomplicated
CPT/HCPCS: 96372; 99284; J1885

== ENCOUNTER 2020-12-23 21:54 | Emergency (ER) | payer OTHER, SELFPAY ==
--- NOTE | 2020-12-23 22:10 | PC.NURSE ---
PT TO ROOM VIA AMBULANCE. CLOTHING REMOVED FROM PT WITH SECURITY. BELONGINGS IN [facility].
[2020-12-23 22:17] VITALS: BP 139/87; PULSE 94; RESP 18; TEMP 36.6; O2SAT 97; BMI 28.4
[2020-12-23 22:27] VITALS: BP 107/60; PULSE 85; O2SAT 100
--- NOTE | 2020-12-23 22:27 | PC.NURSE ---
PT TRYING TO GET OOB. PT CONSTANTLY BEING REDIRECTED. PT REQUESTING TO LEAVE AT THIS TIME.
--- NOTE | 2020-12-23 23:48 | PC.NURSE ---
pt wakes to voice, respirations easy, n/l. skin w/d. pt on monitor with HR 69. will continue to monitor pt.
--- NOTE | 2020-12-24 01:33 | ED.OVERDOSE ---
HPI - Overdose General Chief Complaint: Overdose Stated Complaint: OD Source: patient Mode of arrival: ambulatory Limitations: no limitations History of Present Illness HPI Narrative: Patient presents via EMS for heroin overdose. Required 16 mg of Narcan for revival. complaint: accidental overdose Onset (ago): hour(s) (Within the hour of arrival) Context: Accidental Overdose: wanted to get high Treatments Prior to Arrival: narcan Related Data Previous Rx's Medication Instructions Recorded diazepam 5 mg tablet (Valium) 5 mg PO TID PRN #10 tab 02/16/20 ibuprofen 600 mg tablet 600 mg PO Q6H PRN #30 tab 02/16/20 prednisone 20 mg tablet 40 mg PO DAILY 4 Days #8 tab 02/16/20 cephalexin 500 mg capsule 500 mg PO QID #40 cap 05/31/20 diazepam 5 mg tablet (Valium) 5 mg PO TID PRN #10 tab 10/06/20 ibuprofen 600 mg tablet 600 mg PO Q6H PRN #30 tab 10/06/20 lidocaine 4 % topical patch 1 patch TOPICAL DAILY PRN #10 ea 10/06/20 prednisone 20 mg tablet 40 mg PO DAILY 4 Days #8 tab 10/06/20 Allergies Allergy/AdvReac Type Severity Reaction Status Date / Time No Known Allergies Allergy Unverified 12/31/19 16:53 Review of Systems Review of Systems: ROS unable to be obtained due to altered mental status Yes Unobtainable due to mental status PMFSH Past Medical History Attestation statement: The following information was validated with the patient. Source: old records reviewed Medical History Back pain Substance abuse Social History Social History Alcohol intake: unknown Patient Tobacco Use Status: Tobacco use Unknown Substance Use Type: Former Substance User Advance Directives: No Advance Directives Information Provided: Yes Physical Exam Vital Signs: Vital Signs: Last Vital Signs Temp 98 F 12/23/20 22:17 Pulse 94 12/23/20 22:17 Resp 18 12/23/20 22:17 BP 139/87 12/23/20 22:17 Pulse Ox 97 12/23/20 22:17 Body Mass Index 28.4 Appearance: Alert. Oriented X3. No acute distress. Eyes: Pupils equal, round and reactive to light. ENT: Pharynx normal. Neck: Normal inspection. Neck supple. CVS: Normal heart rate and rhythm. Pulses normal. Respiratory: No respiratory distress. Breath sounds normal. Abdomen: Soft and nontender. Skin: Skin warm and dry. Normal skin color. Normal skin turgor. Extremities: No lower extremity edema. Neuro: No motor deficit. No sensory deficit. Course Course Course Narrative: Patient evaluated upon arrival, required 16 mg of Narcan for resuscitation. Patient falls asleep, is easily arousable. 1:20 a.m. patient becoming belligerent, swearing at staff, plan of care is to discharge home. Patient is alert oriented x4, breathing without difficulty, O2 sat 99% room air. MDM - Overdose Differential Diagnosis Differential diagnosis: Likely poisoning by opiate or related narcotic Medical Records Attestation: I reviewed the patient's medical records. Discharge Plan Discharge Clinical Impression: Drug overdose Patient Disposition: Home, Self-Care Instructions: Adult Overdose (ED) Additional Instructions: Consider detox. Thank you for choosing this emergency department for evaluation. Please follow-up with primary care physician as needed. Return to the emergency department for any new, concerning, or worsening symptoms. Prescriptions: No Action prednisone 20 mg tablet 40 mg PO DAILY 4 Days Qty: 8 RF: 0 ibuprofen 600 mg tablet 600 mg PO Q6H PRN (Reason: pain) Qty: 30 RF: 0 diazepam [Valium] 5 mg tablet 5 mg PO TID PRN (Reason: muscle spasm) Qty: 10 RF: 0 cephalexin 500 mg capsule 500 mg PO QID Qty: 40 RF: 0 lidocaine 4 % adhesive patch,medicated 1 patch topical DAILY PRN (Reason: pain) Qty: 10 RF: 0 ibuprofen 600 mg tablet 600 mg PO Q6H PRN (Reason: pain) Qty: 30 RF: 0 diazepam [Valium] 5 mg tablet 5 mg PO TID PRN (Reason: muscle spasm) Qty: 10 RF: 0 prednisone 20 mg tablet 40 mg PO DAILY 4 Days Qty: 8 RF: 0
--- NOTE | 2020-12-24 01:47 | PC.NURSE ---
PT STARTED YELLING AND SCREAMING AT STAFF IN THE [facility] ROOM AFTER BEING ESCORTED BY SECURITY STATING JOANNAK, JOANNAK, JOANNAK, THREATENING STAFF STATING IM GONA MEET YOU OUTSIDE .
--- NOTE | 2020-12-24 01:50 | PC.NURSE ---
PT REFUSING DISCHARGE PAPERWORK. PT LEFT ED WITH STEADY EVEN GAIT TO OUTSIDE. IV REMOVED PREVIOUSLY.
== END 2020-12-24 01:53 | disposition home or self-care (01) ==
PROVIDERS: Emergency Provider Student in an Organized Health Care Education/Training Program; PCP Internal Medicine
DX: T40.1X1A Poisoning by heroin, accidental (unintentional), initial encounter (principal); F11.10 Opioid abuse, uncomplicated; Y92.9 Unspecified place or not applicable; Z71.51 Drug abuse counseling and surveillance of drug abuser; Z79.899 Other long term (current) drug therapy
CPT/HCPCS: 99283

== ENCOUNTER 2020-12-27 10:20 | Emergency (ER) | payer OTHER, SELFPAY ==
--- NOTE | ~2020-12-27 | XR_ITS ---
EXAMINATION: XR ANKLE, bilateral CLINICAL INFORMATION: Pain, redness and tenderness bilaterally COMPARISON: None TECHNIQUE: AP, lateral, and mortise views of the left ankle. FINDINGS: Right: Bone alignment is normal. No fracture or dislocation is seen. The ankle mortise is normal. Soft tissues are normal. Left: Bone alignment is normal. No fracture or dislocation is seen. The ankle mortise is normal. Soft tissues are normal. XR/XR ankle LT min 3V IMPRESSION: Unremarkable exam.
--- NOTE | ~2020-12-27 | XR_ITS ---
EXAMINATION: XR ANKLE, bilateral CLINICAL INFORMATION: Pain, redness and tenderness bilaterally COMPARISON: None TECHNIQUE: AP, lateral, and mortise views of the left ankle. FINDINGS: Right: Bone alignment is normal. No fracture or dislocation is seen. The ankle mortise is normal. Soft tissues are normal. Left: Bone alignment is normal. No fracture or dislocation is seen. The ankle mortise is normal. Soft tissues are normal. XR/XR ankle RT min 3V IMPRESSION: Unremarkable exam.
[2020-12-27 11:39] VITALS: BP 100/56; PULSE 61; RESP 16; TEMP 36.4; O2SAT 98; BMI 25.8
--- NOTE | 2020-12-27 12:00 | ED_ITS ---
HPI - Extremity Problem General Chief complaint: Extremity Problem Stated complaint: swollen feet Time Seen by Provider: 12/27/20 11:54 History of Present Illness HPI Narrative: Patient is a 30-year-old male with a history of IV drug use. Patient claims he use IV drugs last time was on Saturday. Presents today with having pain to bilateral lower extremity unable to ambulate having increasing redness swelling. Patient from home. No fever no chills no coughing or congestion or upper respiratory symptoms. Pain on walking. Related Data Previous Rx's Medication Instructions Recorded diazepam 5 mg tablet (Valium) 5 mg PO TID PRN #10 tab 02/16/20 ibuprofen 600 mg tablet 600 mg PO Q6H PRN #30 tab 02/16/20 prednisone 20 mg tablet 40 mg PO DAILY 4 Days #8 tab 02/16/20 cephalexin 500 mg capsule 500 mg PO QID #40 cap 05/31/20 diazepam 5 mg tablet (Valium) 5 mg PO TID PRN #10 tab 10/06/20 ibuprofen 600 mg tablet 600 mg PO Q6H PRN #30 tab 10/06/20 lidocaine 4 % topical patch 1 patch TOPICAL DAILY PRN #10 ea 10/06/20 prednisone 20 mg tablet 40 mg PO DAILY 4 Days #8 tab 10/06/20 clindamycin HCl 300 mg capsule 300 mg PO QID #28 cap 12/27/20 Allergies Allergy/AdvReac Type Severity Reaction Status Date / Time No Known Allergies Allergy Unverified 12/31/19 16:53 Review of Systems Review of Systems: Positive pain to bilateral ankle and foot. No fever no chills. Pain on ambulation. History of IV drug use Did not shoot up drugs in his foot . All systems reviewed otherwise negative FOR[facility]LY [facility] Past Medical History Attestation statement: The following information was validated with the patient. Medical History Back pain Substance abuse Social History Social History Alcohol intake: unknown Patient Tobacco Use Status: Tobacco use Unknown Substance Use Type: Former Substance User Advance Directives: No Advance Directives Information Provided: No Physical Exam Vital Signs: Vital Signs: Last Vital Signs Temp 97.6 F 12/27/20 11:39 Pulse 61 12/27/20 11:39 Resp 16 12/27/20 11:39 BP 100/56 L 12/27/20 11:39 Pulse Ox 98 12/27/20 11:39 Body Mass Index 25.8 Appearance: Alert. Oriented X3. No acute distress. Eyes: Pupils equal, round and reactive to light. ENT: Pharynx normal. Neck: Normal inspection. Neck supple. No lymph nodes noted. No crepitus CVS: Normal heart rate and rhythm. Pulses normal. Normal S1 and S2 Respiratory: No respiratory distress. Breath sounds normal. No Wheezing. No rales Abdomen: Soft and nontender. No rigidity. No distention. good BS x4 Skin: Skin warm and dry. Normal skin color. Normal skin turgor. Extremities: Positive swelling to bilateral lower extremity. Approximately 1+ pitting edema there is redness noted over bilateral ankle worse on the right side. Sensation over both feet is intact. The redness extends all the way down to the toes bilaterally.. It is warm to touch. He has decreased range of motion in both ankles. Pulses were 2+ at dorsalis pedis bilaterally. Capillary refill less than 2 seconds. Movement in the toes intact in both feet. Neuro: Oriented X 3. No motor deficit. No sensory deficit. Moving all extermities. No slurred speech MDM - Extremity (Nontraumatic) MDM Narrative Medical decision making narrative: X-ray showed no acute fracture no sign of osteomyelitis. There is redness over both ankle and foot. Likely secondary to cellulitis. Patient's white count is 11. Patient's sed rate is low there is no gross evidence of septic joint at this time. Will start patient on antibiotics. Will have patient closely follow up on an outpatient basis. Patient is started on clindamycin for empiric community-acquired MRSA coverage. Patient in stable condition. Lab Data Result diagrams: 12/27/20 12:23 12/27/20 12:22 Labs: Lab Results 12/27/20 12/27/20 12/27/20 Range/Units 12:22 12:22 12:23 WBC 11.5 H (4.8-10.8) X10*3/uL RBC 4.70 (4.60-5.80) X10*6/uL Hgb 15.8 (14.0-18.0) g/dl Hct 46.5 (42-52) % MCV 98.9 H (80-98) fL MCH 33.6 H (27.0-33.0) pg MCHC 34.0 (31.0-36.0) g/dl RDW 11.8 (11.0-16.0) % Plt Count 190 D (160-400) X10*3/uL MPV 10.1 (9.4-12.4) fL Immature Gran % (Auto) 0.3 (0.0-0.4) % Neut % (Auto) 80.7 H (45-73) % Lymph % (Auto) 7.2 L (20-40) % [place] % (Auto) 10.3 (2-11) % Eos % (Auto) 1.2 (0-4) % Baso % (Auto) 0.3 (0-2) % Lymph # (Auto) 0.8 L (1.2-4.9) X10*3/uL [place] # (Auto) 1.2 (0.1-1.2) X10*3/uL Eos # (Auto) 0.1 (0.0-0.4) X10*3/uL Baso # (Auto) 0.0 (0.0-0.2) X10*3/uL Abs Immat Gran (auto) 0.04 H (0.00-0.03) X10*3/uL Absolute Neuts (auto) 9.3 H (2.0-8.3) X10*3/uL Absolute Nucleated RBC 0.000 (0.0-0.012) X10*3/uL Nucleated RBC % (auto) 0.0 (0.0-0.2) /100WBC ESR (0-15) MM/HR Sodium 136 (135-145) mmol/L Potassium 4.2 (3.3-5.1) mmol/L Chloride 97 (96-108) mmol/L Carbon Dioxide 28 (22-29) mmol/L Anion Gap 15 (12-20) BUN 10 (9-16) mg/dL Creatinine 1.00 (0.5-1.4) mg/dL Estim Creat Clear Calc 99.1 Estimated GFR > 60 Random Glucose 109 (60-115) mg/dL Lactic Acid 1.0 (0.5-2.0) mmol/L Calcium 10.1 D (8.4-10.2) mg/dL 12/27/20 Range/Units 12:23 WBC (4.8-10.8) X10*3/uL RBC (4.60-5.80) X10*6/uL Hgb (14.0-18.0) g/dl Hct (42-52) % MCV (80-98) fL MCH (27.0-33.0) pg MCHC (31.0-36.0) g/dl RDW (11.0-16.0) % Plt Count (160-400) X10*3/uL MPV (9.4-12.4) fL Immature Gran % (Auto) (0.0-0.4) % Neut % (Auto) (45-73) % Lymph % (Auto) (20-40) % [place] % (Auto) (2-11) % Eos % (Auto) (0-4) % Baso % (Auto) (0-2) % Lymph # (Auto) (1.2-4.9) X10*3/uL [place] # (Auto) (0.1-1.2) X10*3/uL Eos # (Auto) (0.0-0.4) X10*3/uL Baso # (Auto) (0.0-0.2) X10*3/uL Abs Immat Gran (auto) (0.00-0.03) X10*3/uL Absolute Neuts (auto) (2.0-8.3) X10*3/uL Absolute Nucleated RBC (0.0-0.012) X10*3/uL Nucleated RBC % (auto) (0.0-0.2) /100WBC ESR 5 (0-15) MM/HR Sodium (135-145) mmol/L Potassium (3.3-5.1) mmol/L Chloride (96-108) mmol/L Carbon Dioxide (22-29) mmol/L Anion Gap (12-20) BUN (9-16) mg/dL Creatinine (0.5-1.4) mg/dL Estim Creat Clear Calc Estimated GFR Random Glucose (60-115) mg/dL Lactic Acid (0.5-2.0) mmol/L Calcium (8.4-10.2) mg/dL Discharge Plan Discharge Clinical Impression: Cellulitis Patient Disposition: Home, Self-Care Instructions: Cellulitis (ED) Prescriptions: New clindamycin HCl 300 mg capsule 300 mg PO QID Qty: 28 RF: 0 No Action prednisone 20 mg tablet 40 mg PO DAILY 4 Days Qty: 8 RF: 0 ibuprofen 600 mg tablet 600 mg PO Q6H PRN (Reason: pain) Qty: 30 RF: 0 diazepam [Valium] 5 mg tablet 5 mg PO TID PRN (Reason: muscle spasm) Qty: 10 RF: 0 cephalexin 500 mg capsule 500 mg PO QID Qty: 40 RF: 0 lidocaine 4 % adhesive patch,medicated 1 patch topical DAILY PRN (Reason: pain) Qty: 10 RF: 0 ibuprofen 600 mg tablet 600 mg PO Q6H PRN (Reason: pain) Qty: 30 RF: 0 diazepam [Valium] 5 mg tablet 5 mg PO TID PRN (Reason: muscle spasm) Qty: 10 RF: 0 prednisone 20 mg tablet 40 mg PO DAILY 4 Days Qty: 8 RF: 0 [place] [facility] [place] [facility] [place] Group] - 2 days Physician,None [Primary Care Provider] - 2 days [facility] [Physician] - 2 days
[2020-12-27 12:29] LABS: MANUAL DIFF FLAG NO
[2020-12-27 12:31] LABS: Basophils Percent Auto 0.3 % (0-2); Eosinophils Absolute Auto 0.1 X10*3/uL (0.0-0.4); Eosinophils Percent Auto 1.2 % (0-4); Hematocrit 46.5 % (42-52); Hemoglobin 15.8 g/dl (14.0-18.0); Imm Gran Abs Auto 0.04 X10*3/uL (0.00-0.03); Imm Gran Pct Auto 0.3 % (0.0-0.4); Lymphocytes Absolute Auto 0.8 X10*3/uL (1.2-4.9); Lymphocytes Percent Auto 7.2 % (20-40); Mean Corpuscular Hemoglobin 33.6 pg (27.0-33.0); Mean Corpuscular Volume 98.9 fL (80-98); Mean Platelet Volume 10.1 fL (9.4-12.4); Monocytes Absolute Auto 1.2 X10*3/uL (0.1-1.2); Monocytes Percent Auto 10.3 % (2-11); Neutrophils Absolute Auto 9.3 X10*3/uL (2.0-8.3); Neutrophils Percent Auto 80.7 % (45-73); Platelet Count 190 X10*3/uL (160-400); Red Cell Distribution Width 11.8 % (11.0-16.0); White Blood Count 11.5 X10*3/uL (4.8-10.8)
[2020-12-27 12:45] LABS: Anion Gap 15 (12-20); Blood Urea Nitrogen 10 mg/dL (9-16); Calcium 10.1 mg/dL (8.4-10.2); Carbon Dioxide 28 mmol/L (22-29); Chloride 97 mmol/L (96-108); Creatinine Clr Calc Pharmacy 99.1; Estimated Glomerular Filt Rate > 60; Glucose Random 109 mg/dL (60-115); Potassium 4.2 mmol/L (3.3-5.1); Sodium 136 mmol/L (135-145)
[2020-12-27 13:15] LABS: Erythrocyte Sedimentation Rate 5 MM/HR (0-15)
--- NOTE | 2020-12-27 13:17 | MHC.RECOVSUP ---
? Reason for consult:Continuity of care o Current location:[facility] o Identified substance use concern:Heroin - Withdrawal - Support ? Intervention: o Community resources provided o Harm reduction discussion ? Plan: o Referral to [facility] o Patient to follow up with [facility] after discharge ? Additional information:Patient refusing detox but interested in detox facilities and MAT. I provided community resources to him.
[2020-12-27] MEDS: Clindamycin HCL 300 MG CAPSULE PO (13:58)
== END 2020-12-27 14:01 | disposition home or self-care (01) ==
PROVIDERS: Emergency Provider Emergency Medicine Emergency Medical Services
DX: L03.115 Cellulitis of right lower limb (principal); L03.116 Cellulitis of left lower limb; F11.10 Opioid abuse, uncomplicated; Z79.899 Other long term (current) drug therapy; Z71.51 Drug abuse counseling and surveillance of drug abuser
CPT/HCPCS: 36415; 73610; 80048; 83605; 85025; 85652; 87040; 99284

== ENCOUNTER 2021-12-05 01:38 | Emergency (ER) | payer OTHER, SELFPAY ==
--- NOTE | ~2021-12-05 | US_ITS ---
EXAMINATION: US VENOUS ULTRASOUND WITH DOPPLER LOWER EXTREMITY, RIGHT CLINICAL INFORMATION: Right calf tender and swollen COMPARISON: None TECHNIQUE: Ultrasound of the deep veins is performed from the hip to the calf with compression sonography and color and pulse Doppler assessment. Spectral analysis with color-flow imaging is performed. FINDINGS: There is normal venous compression and respiratory variation and augmented flow. The visualized common femoral vein, superficial femoral vein, profunda femoral vein, popliteal vein, and the trifurcation region shows no evidence of deep venous thrombosis. There is no significant popliteal fossa cyst. If the patient's symptoms persist, followup ultrasound in 5 days 7 days might be of value to exclude proximal propagation from a non-visualized calf vein. US/US venous duplex LE RT IMPRESSION: No DVT demonstrated in the right lower extremity.
--- NOTE | ~2021-12-05 | XR_ITS ---
EXAMINATION: XR ANKLE, RIGHT CLINICAL INFORMATION: Pain after injury COMPARISON: 12/27/2020 TECHNIQUE: AP, lateral, and mortise views of the right ankle. FINDINGS: Osseous alignment is anatomic. No acute fracture is seen. No significant focal soft tissue abnormality identified. XR/XR ankle RT min 3V IMPRESSION: No acute findings identified.
[2021-12-05 01:46] VITALS: BP 155/96; PULSE 89; O2SAT 94
[2021-12-05 01:57] VITALS: BP 134/86; PULSE 79; RESP 18; O2SAT 94; BMI 25.1
--- NOTE | 2021-12-05 02:09 | ED.LOWEXIN ---
HPI - Extremity Injury (Lower) General Chief Complaint: Extremity Injury, Lower Stated Complaint: ankle pain Time Seen by Provider: 12/05/21 01:40 Source: patient Mode of arrival: ambulatory Limitations: no limitations History of Present Illness HPI Narrative: Patient was drinking all afternoon, now with pain to his right calf and vomiting. patient states his vomiting because he did 15 shots, his mom recently and he has a lot going on. complaint: leg injury Onset (ago): hour(s) Place: home Severity: severe Exacerbating factors: weight bearing and movement Other symptoms: nausea/vomiting Related Data Previous Rx's Medication Instructions Recorded diazepam 5 mg tablet (Valium) 5 mg PO TID PRN muscle spasm #10 02/16/20 tabs ibuprofen 600 mg tablet 600 mg PO Q6H PRN pain #30 tabs 02/16/20 prednisone 20 mg tablet 40 mg PO DAILY 4 days #8 tabs 02/16/20 cephalexin 500 mg capsule 500 mg PO QID #40 caps 05/31/20 diazepam 5 mg tablet (Valium) 5 mg PO TID PRN muscle spasm #10 10/06/20 tabs ibuprofen 600 mg tablet 600 mg PO Q6H PRN pain #30 tabs 10/06/20 lidocaine 4 % topical patch 1 patch topical DAILY PRN pain #10 10/06/20 ea prednisone 20 mg tablet 40 mg PO DAILY 4 days #8 tabs 10/06/20 clindamycin HCl 300 mg capsule 300 mg PO QID Skin infection #28 12/27/20 caps Allergies Allergy/AdvReac Type Severity Reaction Status Date / Time No Known Allergies Allergy Unverified 12/31/19 16:53 Review of Systems Constitutional: Constitutional: Reports no additional constitutional complaints Eyes: Eyes: Reports no additional eye complaints ENT: Denies dizziness Cardiovascular: Cardiovascular: Reports no additional cardiovascular complaints Respiratory: Respiratory: Reports as per HPI Gastrointestinal: Gastrointestinal: Reports no additional gastrointestinal complaints Musculoskeletal: Musculoskeletal: Reports no additional musculoskeletal complaints Integumentary/Breasts: Skin/Breast: Denies rash Neurologic: Reports system reviewed and no additional complaints, except as documented, Denies dizziness and Denies Sensory deficit (Neuro) Psychiatric: Psychiatric: Denies anxiety PMFSH Past Medical History Medical History Back pain Substance abuse Social History Social History Alcohol intake: unknown Patient Tobacco Use Status: Tobacco use Unknown Substance Use Type: Former Substance User Advance Directives: No Advance Directives Information Provided: No Physical Exam Vital Signs: Vital Signs: Last Vital Signs Temp 97.6 F 12/05/21 04:34 Pulse 76 12/05/21 04:34 Resp 22 H 12/05/21 04:34 BP 136/83 12/05/21 04:34 Pulse Ox 99 12/05/21 04:34 O2 Del Method 12/05/21 04:34 BMI result Body Mass Index 25.1 Const: Other: looking older than stated age, chronically ill, vomiting Nutritional Appearance: average body habitus Orientation/consciousness: oriented to person and patient oriented x3 Limitations: no limitations HEENT: Head: Yes normal to inspection Ears: external ears normal General nose exam: Normal external nose present Mouth: Normal oral and palatal mucosa present and oropharynx normal Throat: Yes posterior oropharynx normal Eyes: General: appearance normal, both eyes and all related structures Neck: Other: supple Neck: Yes normal visual inspection Chest: Chest palpation & inspection: normal inspection of the chest Resp: Auscultation: clear to auscultation bilaterally Cardio: Jugular venous distension: no JVD Rate: regular rate Rhythm: regular rhythm Heart sounds: S1 normal heart sound present and S2 normal heart sound present GI: Inspection: Yes normal to inspection Palpation (GI): Soft to palpation, nontender and No hepatosplenomegaly present Auscultation: normal bowel sounds : General: Yes no CVA tenderness Back/Spine/Pelvis: Back: no CVA tenderness Skin: General skin exam: no rashes or lesions noted Neuro: General: oriented to person and patient oriented x3 Cranial nerves: Yes CN's II-XII intact bilaterally Motor exam (neuro): 5/5 motor strength present throughout Sensory Exam: No Sensory deficit (Neuro) Extrem: Other: right calf tender in pain, tense and swollen Psych: Appearance: grossly normal Course Reevaluation(s) Reevaluation #1: no evidence of clot, patient with elevated WBC will obtain CT of right calf Time: 04:23 Reevaluation #2: calf very swollen and tight, able to dorsi and plantar flex, very tender, good DP and PT pulses will start with CT but may need compartment pressures measured but patient denies injury. Time: 04:33 Reevaluation #3: CPK over 70,000 will transfer to [facility] for evaluation for fasciotomy by trauma, accepted by Dr. Roth Time: 05:10 MDM - Extremity Injury (Lower) Lab Data Result diagrams: 12/05/21 03:37 12/05/21 03:37 Labs: Lab Results 12/05/21 12/05/21 12/05/21 Range/Units 03:37 03:37 03:37 WBC 16.4 H (4.8-10.8) X10*3/uL RBC 4.91 (4.60-5.80) X10*6/uL Hgb 16.2 (14.0-18.0) g/dl Hct 47.7 (42.0-52.0) % MCV 97.1 (80.0-98.0) fL MCH 33.0 (27.0-33.0) pg MCHC 34.0 (31.0-36.0) g/dl RDW 12.6 (11.0-16.0) % Plt Count 218 (160-400) X10*3/uL MPV 9.8 (9.4-12.4) fL Immature Gran % (Auto) 0.5 H (0.0-0.4) % Neut % (Auto) 83.6 H (45-73) % Lymph % (Auto) 3.4 L (20-40) % [place] % (Auto) 12.3 H (2-11) % Eos % (Auto) 0.0 (0-4) % Baso % (Auto) 0.2 (0-2) % Lymph # (Auto) 0.6 L (1.2-4.9) X10*3/uL [place] # (Auto) 2.0 H (0.1-1.2) X10*3/uL Eos # (Auto) 0.0 (0.0-0.4) X10*3/uL Baso # (Auto) 0.0 (0.0-0.2) X10*3/uL Abs Immat Gran (auto) 0.08 H (0.00-0.03) X10*3/uL Absolute Neuts (auto) 13.7 H (2.0-8.3) x10*3/uL Absolute Nucleated RBC 0.000 (0.0-0.012) X10*3/uL Nucleated RBC % (auto) 0.0 (0.0-0.2) /100WBC Smear Tech's Comments VERIFIED Sodium 139 (135-145) mmol/L Potassium 4.2 (3.3-5.1) mmol/L Chloride 101 (96-108) mmol/L Carbon Dioxide 25 (22-29) mmol/L Anion Gap 17 (12-20) BUN 10 (9-16) mg/dL Creatinine 1.00 (0.5-1.4) mg/dL Estim Creat Clear Calc 98.2 Estimated GFR > 60 Random Glucose 106 (60-115) mg/dL Calcium 8.5 D (8.4-10.2) mg/dL Total Bilirubin 0.6 (0.0-1.0) mg/dL Direct Bilirubin 0.2 (0.0-0.5) mg/dL AST 1239 H (5-37) U/L ALT 292 H (0-40) U/L Alkaline Phosphatase 69 (39-117) U/L Total Creatine Kinase 44269 H D (38-174) U/L Total Protein 7.5 (6.5-8.0) g/dL Albumin 4.8 (3.5-5.0) g/dL Ethyl Alcohol < 10 mg/dL COVID-19 ([facility]) (Negative) COVID-19 Clin Com 12/05/21 Range/Units 05:00 WBC (4.8-10.8) X10*3/uL RBC (4.60-5.80) X10*6/uL Hgb (14.0-18.0) g/dl Hct (42.0-52.0) % MCV (80.0-98.0) fL MCH (27.0-33.0) pg MCHC (31.0-36.0) g/dl RDW (11.0-16.0) % Plt Count (160-400) X10*3/uL MPV (9.4-12.4) fL Immature Gran % (Auto) (0.0-0.4) % Neut % (Auto) (45-73) % Lymph % (Auto) (20-40) % [place] % (Auto) (2-11) % Eos % (Auto) (0-4) % Baso % (Auto) (0-2) % Lymph # (Auto) (1.2-4.9) X10*3/uL [place] # (Auto) (0.1-1.2) X10*3/uL Eos # (Auto) (0.0-0.4) X10*3/uL Baso # (Auto) (0.0-0.2) X10*3/uL Abs Immat Gran (auto) (0.00-0.03) X10*3/uL Absolute Neuts (auto) (2.0-8.3) x10*3/uL Absolute Nucleated RBC (0.0-0.012) X10*3/uL Nucleated RBC % (auto) (0.0-0.2) /100WBC Smear Tech's Comments Sodium (135-145) mmol/L Potassium (3.3-5.1) mmol/L Chloride (96-108) mmol/L Carbon Dioxide (22-29) mmol/L Anion Gap (12-20) BUN (9-16) mg/dL Creatinine (0.5-1.4) mg/dL Estim Creat Clear Calc Estimated GFR Random Glucose (60-115) mg/dL Calcium (8.4-10.2) mg/dL Total Bilirubin (0.0-1.0) mg/dL Direct Bilirubin (0.0-0.5) mg/dL AST (5-37) U/L ALT (0-40) U/L Alkaline Phosphatase (39-117) U/L Total Creatine Kinase (38-174) U/L Total Protein (6.5-8.0) g/dL Albumin (3.5-5.0) g/dL Ethyl Alcohol mg/dL COVID-19 ([facility]) Negative (Negative) COVID-19 Clin Com See Note Imaging Data right ankle: Radiologist's impression: IMPRESSION: No acute findings identified. Critical Care Time Critical Care Time Attestation: I spent 40 minutes of critical care, with interventions, assessments, speaking to patient, consultants, and family. Discharge Plan Discharge Clinical Impression: Compartment syndrome, Rhabdomyolysis, Acute alcoholic hepatitis Patient Disposition: [facility] Transfer Details: accepted by trauma surgery at [facility] for fasciotomy Prescriptions: No Action clindamycin HCl 300 mg capsule 300 mg PO QID Qty: 28 0RF prednisone 20 mg tablet 40 mg PO DAILY 4 Days Qty: 8 0RF ibuprofen 600 mg tablet 600 mg PO Q6H PRN (Reason: pain) Qty: 30 0RF diazepam [Valium] 5 mg tablet 5 mg PO TID PRN (Reason: muscle spasm) Qty: 10 0RF cephalexin 500 mg capsule 500 mg PO QID Qty: 40 0RF lidocaine 4 % adhesive patch,medicated 1 patch topical DAILY PRN (Reason: pain) Qty: 10 0RF Rx Instructions: may leave on for up to 12 hrs ibuprofen 600 mg tablet 600 mg PO Q6H PRN (Reason: pain) Qty: 30 0RF diazepam [Valium] 5 mg tablet 5 mg PO TID PRN (Reason: muscle spasm) Qty: 10 0RF prednisone 20 mg tablet 40 mg PO DAILY 4 Days Qty: 8 0RF
--- NOTE | 2021-12-05 02:12 | PC.NURSE ---
AFTER DEPARTMENT CHAIR WAS ABLE TO CONFIRM + PEDAL PULSE, CAP REFILL <2 WITH NO SENSATION REPORTED PT DENIES BEING ABLE TO CONFIRM/FEEL WHEN THIS RN WAS TOUCH TOES OR PLANTAR ASPECT OF FOOT. RN ROLLED UP PT'S PANT LEG TO SEE THAT HIS RIGHT CALF WAS VISIBLY SWOLLEN, FIRM AND TIGHT TO PALPATION WITH COMPARED TO THE LEFT. MD TAO MADE AWARE OF RN'S FINDINGS RIGHT AWAY AND WAS ASKED TO EVALUATE PT AT BEDSIDE.
--- NOTE | 2021-12-05 02:20 | PC.NURSE ---
Pt noted to have goins emotional changes which result in outbursts towards staff after which he is quick to apologize; pt acknowledges recent loss of his mother one month ago and reports no sleep in days. Pt noted to often dose off, at which time he was noted to spill his ice water on himself and the bed. staff assisted wtih provided clean linen and with changing of sheets also provided the pt with new pants. The pt was noted to vomit multiple times after drinking different beverages despite staff encouraging him to refrain from drinking due to nausea. Pt to be medicated by another staff mine warfare officer to assist as US unable to be completed/take the patient for imaging.
[2021-12-05] MEDS: 0.9 % Sodium Chloride 1,000 ML 999 ML IVCONT ×2 (02:50→05:15)
[2021-12-05] MEDS: Ketorolac Tromethamine 30 MG/ML VIAL IVPUSH (02:50)
[2021-12-05] MEDS: Pantoprazole Sodium 40 MG/10 ML VIAL IVPUSH (02:50)
[2021-12-05] MEDS: ondansetron HCL 4 MG/2 ML VIAL IVPUSH (02:50)
[2021-12-05 03:44] LABS: Basophils Percent Auto 0.2 % (0-2); Hematocrit 47.7 % (42.0-52.0); Hemoglobin 16.2 g/dl (14.0-18.0); Imm Gran Abs Auto 0.08 X10*3/uL (0.00-0.03); Imm Gran Pct Auto 0.5 % (0.0-0.4); Lymphocytes Absolute Auto 0.6 X10*3/uL (1.2-4.9); Lymphocytes Percent Auto 3.4 % (20-40); MANUAL DIFF FLAG SCAN; Mean Corpuscular Volume 97.1 fL (80.0-98.0); Mean Platelet Volume 9.8 fL (9.4-12.4); Monocytes Percent Auto 12.3 % (2-11); Neutrophils Absolute Auto 13.7 x10*3/uL (2.0-8.3); Neutrophils Percent Auto 83.6 % (45-73); Platelet Count 218 X10*3/uL (160-400); Red Blood Count 4.91 X10*6/uL (4.60-5.80); Red Cell Distribution Width 12.6 % (11.0-16.0); SCAN SMEAR FLAG 1; White Blood Count 16.4 X10*3/uL (4.8-10.8)
[2021-12-05 03:58] LABS: Ethanol < 10 mg/dL
[2021-12-05 04:03] LABS: SLIDE REVIEW VERIFIED
[2021-12-05 04:07] LABS: Alanine Aminotransferase 292 U/L (0-40); Albumin Level 4.8 g/dL (3.5-5.0); Alkaline Phosphatase 69 U/L (39-117); Anion Gap 17 (12-20); Aspartate Amino Transferase 1239 U/L (5-37); Bilirubin Direct 0.2 mg/dL (0.0-0.5); Bilirubin Total 0.6 mg/dL (0.0-1.0); Blood Urea Nitrogen 10 mg/dL (9-16); Calcium 8.5 mg/dL (8.4-10.2); Carbon Dioxide 25 mmol/L (22-29); Chloride 101 mmol/L (96-108); Creatinine Clr Calc Pharmacy 98.2; Estimated Glomerular Filt Rate > 60; Glucose Random 106 mg/dL (60-115); Potassium 4.2 mmol/L (3.3-5.1); Sodium 139 mmol/L (135-145); Total Protein 7.5 g/dL (6.5-8.0)
[2021-12-05] MEDS: Morphine Sulfate 4 MG/ML CARTRIDGE IVPUSH (04:33)
[2021-12-05 04:34] VITALS: BP 136/83; PULSE 76; RESP 22; TEMP 36.4; O2SAT 99
--- NOTE | 2021-12-05 05:00 | PC.NURSE ---
call out to [facility] TRANSFER LINE @[phone] spoke to rosa regarding transfer, [facility] will call back
[2021-12-05 05:25] LABS: COVID-19 Test Negative (Negative); IDNOW Serial# 16C4AD1C
--- NOTE | 2021-12-05 05:37 | PC.NURSE ---
Report provided to Kathleen QUINTANA from [facility] ER regarding pt's upcoming transfer
[2021-12-05 05:50] VITALS: BP 150/92; O2SAT 98
== END 2021-12-05 06:02 | disposition short-term general hospital (02) ==
PROVIDERS: Emergency Provider Emergency Medicine
DX: K70.10 Alcoholic hepatitis without ascites (principal); T79.A21A Traumatic compartment syndrome of right lower extremity, initial encounter; M25.571 Pain in right ankle and joints of right foot; R60.0 Localized edema; R11.2 Nausea with vomiting, unspecified; M62.82 Rhabdomyolysis; X58.XXXA Exposure to other specified factors, initial encounter; Y93.9 Activity, unspecified; Y92.9 Unspecified place or not applicable; Y99.9 Unspecified external cause status; Z20.822 Contact with and (suspected) exposure to COVID-19; Z79.899 Other long term (current) drug therapy
CPT/HCPCS: 36415; 73610; 80048; 80076; 82077; 82550; 85025; 87635; 93971; 96361; 96374; 96375; 99285; J1885; J2270; J2405

== ENCOUNTER 2022-03-08 19:42 | Emergency (ER) | payer OTHER, SELFPAY ==
[2022-03-08] VITALS (10 sets, daily range): BP systolic 99–146; BP diastolic 52–93; PULSE 73–123; RESP 10–20; TEMP 36.8; O2SAT 94–100; BMI 25.8
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
[2022-03-08] MEDS: Ketamine HCl 500 MG/5 ML VIAL 300 MG IM (20:03)
--- OUTSIDE RECORDS SUMMARY | 2022-03-08 20:04 | XMS_ITS | Continuity of Care Document ---
:1990 Author Organization [facility] Address [address] [place] [id number]- Care Team Providers Name Role Phone Not on Staff, PCP Primary Care Physician Unavailable Encounter [facility] Date(s): 01/08/22 - 02/07/22 [facility] [address] [place] [address]- [place] Allergies, Adverse Reactions, Alerts No Known Allergies Immunizations Given and Recorded Vaccine Date Status Refusal Reason SARS-CoV-2 (COVID-19) mRNA BNT-162b2 vac 03/31/21 Recorde d SARS-CoV-2 (COVID-19) mRNA BNT-162b2 vac 07/30/20 Recorde d SARS-CoV-2 (COVID-19) mRNA BNT-162b2 vac 07/07/20 Recorde d Medications Colace sodium 100 mg oral capsule 100 mg, 1, capsule, By Mouth, 2 times a day, PRN, # 20 capsule, Refills 0, Tot. Refills 0, Maintenance, for constipation, 02/01/22 17:57:00 EDT, Route to Pharmacy Electronically, [id number], Partial fill upon patient request if the presc... Start Date: 02/01/22 Status: OrderedCrutches Crutches, See Instructions, # 1 each, Refills 0, Tot. Refills 0, Maintenance, Use crutches as neededfor ambulation, 02/01/22 17:58:00 EDT, Supply Start Date: 02/01/22 Status: Orderedgabapentin 600 mg oral tablet 2 tablet = 1,200 mg, By Mouth, 3 times a day, # 180 tablet, 2 Refills, Maintenance, 01/24/22 13:53:00 EDT, Tablet, [facility]/pharmacy #[id number], Partial fill upon patient request if the prescription is for a schedule II opioid drug., 177, cm, 01/24/22 13:35:00... Start Date: 01/24/22 Status: OrderedGauze Pad (4 X 4) See Instructions, # 200 each, Refills 1, Tot. Refills 1, Maintenance, 1 sleeve nonsterile gauze, 01/15/22 10:55:00 EDT, Supply Start Date: 01/15/22 Status: OrderedGauze Roll (4 ) See Instructions, # 30 each, Refills 1, Tot. Refills 1, Maintenance, daily dressing change, 01/15/2210:55:00 EDT, Supply Start Date: 01/15/22 Status: OrderedMens Pack Therapeutic Multiple Vitamins with Minerals oral tablet 1 tablet, By Mouth, Daily, Maintenance, 12/06/21 15:30:00 EDT, Tablet, Partial fill upon patient request if the prescription is for a schedule II opioid drug. Start Date: 12/06/21 Status: Orderedmorphine 15 mg oral tablet, immediate release 1 tablet = 15 mg, By Mouth, Every 4 hours, PRN for pain, 0 Refills, Maintenance, 01/03/22 14:56:00 EDT, Tablet, Partial fill upon patient request if the prescription is for a schedule II opioid drug. Start Date: 01/03/22 Status: OrderedTape (1 -Paper) See Instructions, # 1 each, Refills 1, Tot. Refills 1, Maintenance, secure dressing, 01/15/22 10:55:00 EDT, Supply Start Date: 01/15/22 Status: OrderedVitamin B-12 100 mcg oral tablet 100 mcg, 1, tablet, By Mouth, Daily, # 30 tablet, Refills 0, Maintenance, 01/03/22 14:57:00 EDT, Partial fill upon patient request if the prescription is for a schedule II opioid drug. Start Date: 01/03/22 Status: OrderedXeroform (4x9) See Instructions, # 30 each, Refills 1, Tot. Refills 1, Maintenance, daily dressing, 01/15/22 10:55:00 EDT, Supply Start Date: 01/15/22 Status: Ordered Patient Care team information PersonnelName: Not on Staff, PCP
--- OUTSIDE RECORDS SUMMARY | 2022-03-08 20:04 | XMS_ITS | Continuity of Care Document ---
:1990 Author Organization [address] [place] [address]- Care Team Providers Name Role Phone Shaji Oden MD Primary Care Physician Encounter [facility] [place] Date(s): 02/05/22 - 03/07/[address] [place] [address]- Allergies, Adverse Reactions, Alerts No Known Allergies [...] 02/01/22 17:57:00 EDT, Route to Pharmacy Electronically, [facility], Partial fill upon patient request [...] 2 Refills, Maintenance, 01/24/22 13:53:00 EDT, Tablet, [id number], Partial fill upon patient request if the [...] EDT, Supply Start Date: 01/15/22 Status: Ordered Problem List Condition Confirmation Course Effective Dates Status Health Stat us Informant Compartment Confirmed 02/15/22 Active syndrome Right leg Patient Care team information Care Team PersonnelName: Damaris Juarez RN Position: [facility] RN Member Role: Primary Care Nurse Name: Laurel Valencia RN Position: [facility] RN Member Role: Primary Care Nurse Name: Dayna Goyal RN Position: [facility] RN Member Role: Primary Care Nurse Name: Xuan Marte RN Position: [facility] RN Member Role: Primary Care Nurse Name: Mariana Rock Position: [facility] RN Member Role: Primary Care Nurse Name: Joselyn Martinez RN Position: [facility] RN Member Role: Primary Care Nurse Name: Eli Connors RN Position: [facility] RN Member Role: Primary Care Nurse Name: Olivier London RN Position: [facility] RN Member Role: Primary Care Nurse Name: Shaji Oden MD Position: [facility] Outreach Member Role: PCP Address: Address: [address] [place] [id number] Name: Carli Davison RN Position: [facility] RN Member Role: Primary Care Nurse Care Team Related PersonsName: BAMBI OBRIEN Address: home [address] [place] [address] Name: JASIEL WELSH Address: home [facility]
--- OUTSIDE RECORDS SUMMARY | 2022-03-08 20:04 | XMS_ITS | Continuity of Care Document ---
:1990 Author Organization [facility] Address [address] [place] [address]- Care Team Providers Name Role Phone Not on Staff, PCP Primary Care Physician Unavailable Encounter [facility] Date(s): 02/01/22 - 02/01/[address] [address]- Discharge Disposition: A-D/C Home Attending Physician: Marisa Laurent MD Admitting Physician: Marisa Laurent MD Referring Physician: Marisa Laurent MD Allergies, Adverse Reactions, Alerts No Known Allergies Immunizations Given and Recorded Vaccine Date Status Refusal Reason SARS-CoV-2 (COVID-19) mRNA BNT-162b2 vac 03/31/21 Recorde d SARS-CoV-2 (COVID-19) mRNA BNT-162b2 vac 07/30/20 Recorde d SARS-CoV-2 (COVID-19) mRNA BNT-162b2 vac 07/07/20 Recorde d Medications acetaminophen 325 mg oral tablet 975 mg, 3, tablet, By Mouth, Every 6 hours, for 5 days, not to exceed 4000 mg/day, # 60 tablet, Refills 0, Tot. Refills 0, Acute 02/06/22 17:56:00 EDT, 02/01/22 17:56:00 EDT, Route to Pharmacy Electronically, [facility], Partial fill upo... Start Date: 02/01/22 Stop Date: 02/06/22 Status: OrderedColace sodium 100 mg oral capsule 100 mg, 1, capsule, By Mouth, 2 times a day, PRN, # 20 capsule, Refills 0, Tot. Refills 0, Maintenance, for constipation, 02/01/22 17:57:00 EDT, Route to Pharmacy Electronically, [facility], Partial fill upon patient [facility] if the [facility]... Start Date: 02/01/22 Status: OrderedCrutches Crutches, See Instructions, # 1 each, Refills 0, Tot. Refills 0, Maintenance, Use crutches as neededfor ambulation, 02/01/22 17:58:00 EDT, Supply Start Date: 02/01/22 Status: Orderedgabapentin 600 mg oral tablet 2 tablet = 1,200 mg, By Mouth, 3 times a day, # 180 tablet, 2 Refills, Maintenance, 01/24/22 13:53:00 EDT, Tablet, [facility][id number], Partial fill upon patient request if [...] 01/15/2210:55:00 EDT, Supply Start Date: 01/15/22 Status: Orderedibuprofen 600 mg oral tablet 600 mg, 1, tablet, By Mouth, Every 6 hours, PRN, for 5 days, # 20 tablet, Refills 0, Tot. Refills 0,Acute 02/06/22 17:56:00 EDT, for pain, 02/01/22 17:56:00 EDT, [facility], Partial fill upon patient re... Start Date: 02/01/22 Stop Date: 02/06/22 Status: Orderedibuprofen 600 mg oral tablet 600 mg, 1, tablet, By Mouth, Every 6 hours, PRN, for 5 days, # 20 tablet, Refills 0, Tot. Refills 0,Acute 02/06/22 17:57:00 EDT, for pain, 02/01/22 17:57:00 EDT, Route to Pharmacy Electronically, [facility], Partial fill upon patient re... Start Date: 02/01/22 Stop Date: 02/06/22 Status: OrderedMens Pack Therapeutic Multiple Vitamins with [...] II opioid drug. Start Date: 01/03/22 Status: Orderedmorphine 15 mg oral tablet, immediate release 1 tablet = 15 mg, By Mouth, Every 4 hours, PRN as needed for pain, for 3 days, # 10 tablet, 0 Refills, Acute 02/04/22 17:57:00 EDT, 02/01/22 17:57:00 EDT, Tablet, [facility], Partial fillupon patient request if the prescription is for a... Start Date: 02/01/22 Stop Date: 02/04/22 Status: OrderedTape (1 -Paper) See Instructions, # [...] EDT, Supply Start Date: 01/15/22 Status: Ordered Procedures Procedure Date Related Diagnosis Body Site Status Secondary closure of surgical wound or 02/01/22 Completed dehiscence, extensive or complicated1 Split-thickness autograft, trunk, 02/01/22 Completed arms, legs; first 100 sq cm or less, or 1% of body area of infants and children (except [address]) 1right leg total 5cm proximal and distal wound Vital Signs Most recent to oldest 1 2 3 [Reference Range]: Height 177.8 cm 177.8 cm (02/01/22 12:09 PM) (01/31/22 8:50 AM) Weight 68.1 kg 73.6 kg (02/01/22 12:09 PM) (01/31/22 8:50 AM) Oxygen Saturation [94-100 96 % 96 % 96 % %] (02/01/22 6:15 PM) (02/01/22 5:45 PM) (02/01/22 5:30 PM) Pulse Rate [55-90 bpm] 66 bpm (02/01/22 12:09 PM) Body Mass Index 21.54 kg/m2 23.28 kg/m2 [18.5-24.99 kg/m2] (02/01/22 12:09 PM) (01/31/22 8:50 AM) Blood Pressure 126/74 mm Hg 142/80 mm Hg 126/70 mm Hg [90-138/55-84 mm Hg] (02/01/22 5:45 PM) *H* ( 5:15 PM) (02/01/22 5:30 PM) Respiratory Rate [16-30 15 br/min 13 br/min 11 br/mi n br/min] *L* *L* *L* (02/01/22 5:45 PM) (02/01/22 5:30 PM) (02/01/22 5:15 PM) Temperature [96.8-100.4 98.8 DegF 97.9 DegF 98.6 Deg F DegF] (02/01/22 5:15 PM) (02/01/22 3:30 PM) (02/01/22 12:09 PM) Liters per Minute 8 L/min (02/01/22 3:30 PM) Mode of Delivery (Oxygen) Room air Room air Simple face mask (02/01/22 5:15 PM) (02/01/22 3:45 PM) (02/01/22 3:30 PM) Blood pressure sites Arm, left Arm, left Arm, right (02/01/22 5:15 PM) (02/01/22 3:45 PM) (02/01/22 3:30 PM) Temperature Route Temporal Temporal Temporal (02/01/22 5:15 PM) (02/01/22 3:30 PM) (02/01/22 12:09 PM) Dry Weight 73.6 kg (01/31/22 8:50 AM) Weight Obtained Via Patient/family stated (01/31/22 8:50 AM) Dry Weight Obtained Via Patient/family stated (01/31/22 8:50 AM) Patient Care team information PersonnelName: Not on Staff, PCP
--- OUTSIDE RECORDS SUMMARY | 2022-03-08 20:04 | XMS_ITS | Continuity of Care Document ---
:1990 Author Organization [facility] Address [address] [place] [address]- Care Team Providers Name Role Phone Not on Staff, PCP Primary Care Physician Unavailable Encounter [facility] Date(s): 12/05/21 - 12/13/[address] [address]- Discharge Disposition: A-Transfer VNA/Home Health Attending Physician: Len Oliveira MD Admitting Physician: Len Oliveira MD Referring Physician: Not on Staff, Referring MD Allergies, Adverse Reactions, Alerts No Known Allergies Immunizations Given and Recorded Vaccine Date Status Refusal Reason SARS-CoV-2 (COVID-19) mRNA BNT-162b2 vac 03/31/21 Recorde d SARS-CoV-2 (COVID-19) mRNA BNT-162b2 vac 07/30/20 Recorde d SARS-CoV-2 (COVID-19) mRNA BNT-162b2 vac 07/07/20 Recorde d Medications acetaminophen 325 mg oral tablet 650 mg, 2, tablet, By Mouth, Every 4 hours, for 14 days, # 168 tablet, Refills 0, Tot. Refills 0, Acute 12/27/21 15:38:00 EDT, 12/13/21 15:38:00 EDT, Route to Pharmacy Electronically, [facility], Partial fill upon patient request if the... Start Date: 12/13/21 Stop Date: 12/27/21 Status: OrderedClearLax oral powder for reconstitution = 17 Gm, By Mouth, Daily, for 7 days, # 255 Gm, 0 Refills, Acute 12/20/21 15:39:00 EDT, 12/13/21 15:39:00 EDT, [facility], Partial fill upon patient request if the prescription is for a schedule II opioid drug., 17 Gm By Mouth Daily,x7 d... Start Date: 12/13/21 Stop Date: 12/20/21 Status: OrderedColace sodium 100 mg oral capsule 100 mg, 1, capsule, By Mouth, 2 times a day, # 28 capsule, Refills 0, Tot. Refills 0, Maintenance, 12/13/21 15:38:00 EDT, Route to Pharmacy Electronically, [facility], Partial fill upon patient request if the prescription is for a schedu... Start Date: 12/13/21 Stop Date: 12/27/21 Status: OrderedDilaudid 2 mg oral tablet 4 mg, Tablet, By Mouth, Every 4 hours, PRN for Pain , Severe, Reported pain >6, Routine, 12/09/2211:46:00 EDT Start Date: 12/08/21 Stop Date: 12/15/21 Status: OrderedDilaudid 2 mg oral tablet 1 tablet = 2 mg, By Mouth, Every 4 hours, PRN Pain , Severe, for 7 days, Reported pain >6, # 42 tablet, 0 Refills, Acute 12/20/21 16:41:00 EDT, 12/13/21 16:41:00 EDT, Tablet, [facility], Partial fill upon patient request if the prescript... Start Date: 12/13/21 Stop Date: 12/20/21 Status: Orderedgabapentin 300 mg oral capsule 900 mg, Capsule, By Mouth, 12/13/21 21:00:00 EDT, Stop date 12/13/21 21:00:00 EDT Start Date: 12/13/21 Stop Date: 12/13/21 Status: Completedgabapentin 300 mg oral capsule 900 mg, 3, capsule, By Mouth, 3 times a day, # 270 capsule, Refills 0, Tot. Refills 0, Maintenance, 12/13/21 15:38:00 EDT, Route to Pharmacy Electronically, [facility], Partial fill upon patient request if the prescription is for a sched... Start Date: 12/13/21 Stop Date: 01/12/22 Status: Orderedibuprofen 800 mg oral tablet 800 mg, 1, tablet, By Mouth, 3 times a day, for 14 days, # 42 tablet, Refills 0, Tot. Refills 0, Acute 12/27/21 15:39:00 EDT, 12/13/21 15:39:00 EDT, Route to Pharmacy Electronically, [facility], Partial fill upon patient request if the p... Start Date: 12/13/21 Stop Date: 12/27/21 Status: OrderedMens Pack Therapeutic Multiple Vitamins with Minerals oral tablet 1 tablet, By Mouth, Daily, Maintenance, 12/06/21 15:30:00 EDT, Tablet, Partial fill upon patient request if the prescription is for a schedule II opioid drug. Start Date: 12/06/21 Status: OrderedSenna 8.6 mg oral tablet 8.6 mg, 1, tablet, By Mouth, Daily, for 14 days, # 14 tablet, Refills 0, Tot. Refills 0, Acute, 12/27/21 15:39:00 EDT, 12/13/21 15:39:00 EDT, Route to Pharmacy Electronically, [facility] Tablet, Partial fill upon patient request if the p... Start Date: 12/13/21 Stop Date: 12/27/21 Status: Orderedthiamine 100 mg oral tablet 100 mg, 1, tablet, By Mouth, Daily, for 14 days, # 14 tablet, Refills 0, Tot. Refills 0, Acute 12/27/21 15:39:00 EDT, 12/13/21 15:39:00 EDT, Route to Pharmacy Electronically, [facility], Partial fill upon patient request if the prescript... Start Date: 12/13/21 Stop Date: 12/27/21 Status: Ordered Vital Signs Most recent to oldest 1 2 3 [Reference Range]: Height 177 cm 177 cm 177 cm (12/10/21 3:34 AM) (12/09/21 9:31 PM) (12/08/21 2:0 0 PM) Weight 73.4 kg 72.4 kg 72.4 kg (12/12/21 9:00 AM) (12/07/21 9:04 AM) (12/05/21 12: 43 PM) Oxygen Saturation [94-100 %] 97 % 99 % 99 % (12/13/21 7:00 AM) (12/13/21 4:00 AM) (12/12/21 11: 00 PM) Pulse Rate [55-90 bpm] 70 bpm 67 bpm 68 bpm (12/13/21 7:00 AM) (12/13/21 4:00 AM) (12/12/21 11: 00 PM) Body Mass Index [18.5-24.99] 23.11 23.11 (12/07/21 9:04 AM) (12/05/21 12:43 PM) Blood Pressure [90-138/55-84 133/79 mm Hg 119/53 mm Hg 130 /69 mm Hg mm Hg] (12/13/21 7:00 AM) (12/13/21 4:00 AM) (12/12/21 11: 00 PM) Respiratory Rate [16-30 18 br/min 18 br/min 18 br/mi n br/min] (12/13/21 9:11 PM) (12/13/21 9:11 PM) (12/13/21 5:0 2 PM) Temperature [96.8-100.4 98.5 DegF 98.4 DegF 98.7 Deg F DegF] (12/13/21 7:00 AM) (12/13/21 4:00 AM) (12/12/21 11: 00 PM) Liters per Minute 6 L/min 3 L/min 3 L/min (12/07/21 10:45 AM) (12/05/21 12:15 PM) (12/05/21 1 0:15 AM) Mode of Delivery (Oxygen) Room air Room air Room a ir (12/13/21 7:00 AM) (12/13/21 4:00 AM) (12/12/21 11: 00 PM) Blood pressure sites Arm, right Arm, left Arm, left (12/13/21 7:00 AM) (12/13/21 4:00 AM) (12/12/21 11: 00 PM) Temperature Route Oral Oral Oral (12/13/21 7:00 AM) (12/13/21 4:00 AM) (12/12/21 11: 00 PM) Dry Weight 72.4 kg (12/05/21 12:43 PM) Weight Obtained Via Bed scale (12/12/21 9:00 AM) Care Team PersonnelName: Not on Staff, PCP
--- OUTSIDE RECORDS SUMMARY | 2022-03-08 20:04 | XMS_ITS | Continuity of Care Document ---
:1990 Author Organization [facility] Address [address] [place] [address] Drive [address] [place] [address]- Care Team Providers Name Role Phone Not on Staff, PCP Primary Care Physician Unavailable [place] [facility] [place]/03/[place] - 01/10/[address] [place] [id number]- Attending Physician: Not on Staff, Attending MD Allergies, Adverse Reactions, Alerts No Known Allergies Immunizations Given and Recorded Vaccine Date Status Refusal Reason SARS-CoV-2 (COVID-19) mRNA BNT-162b2 vac 03/31/21 Recorde d SARS-CoV-2 (COVID-19) mRNA BNT-162b2 vac 07/30/20 Recorde d SARS-CoV-2 (COVID-19) mRNA BNT-162b2 vac 07/07/20 Recorde d Medications acetaminophen 325 mg oral capsule 1 capsule = 325 mg, By Mouth, Every 4 hours, PRN as needed for pain, # 20 capsule, 0 Refills, Maintenance, 01/03/22 14:56:00 EDT, Capsule, Partial fill upon patient request if the prescription is for aschedule II opioid drug. Start Date: 01/03/22 Status: Orderedcephalexin monohydrate 500 mg oral capsule 1 capsule = 500 mg, By Mouth, 4 times a day, # 28 capsule, 0 Refills, Maintenance, 01/03/22 14:57:00EDT, Capsule, Partial fill upon patient request if the prescription is for a schedule II opioid drug. Start Date: 01/03/22 Stop Date: 01/10/22 Status: OrderedColace sodium 100 mg oral capsule 100 mg, 1, capsule, By Mouth, 2 times a day, # 28 capsule, Refills 0, Tot. Refills 0, Maintenance, 12/13/21 15:38:00 EDT, Route to Pharmacy Electronically, [facility], Partial fill upon patient request if the prescription is for a schedu... Start Date: 12/13/21 Stop Date: 12/27/21 Status: Orderedgabapentin 300 mg oral capsule 900 mg, 3, capsule, By Mouth, 3 times a day, # 270 capsule, Refills 0, Tot. Refills 0, Maintenance, 12/13/21 15:38:00 EDT, Route to Pharmacy Electronically, [facility], Partial fill upon patient request if the prescription is for a sched... Start Date: 12/13/21 Stop Date: 01/12/22 Status: Orderedibuprofen 800 mg oral tablet 800 mg, 1, tablet, By Mouth, 3 times a day, PRN, # 30 tablet, Refills 0, Maintenance, for pain, 01/03/22 14:55:00 EDT, Partial fill upon patient request if the prescription is for a schedule II opioid drug. Start Date: 01/03/22 Status: OrderedMens Pack Therapeutic Multiple Vitamins with [...] II opioid drug. Start Date: 01/03/22 Status: OrderedVitamin B-12 100 mcg oral tablet 100 mcg, 1, tablet, By Mouth, Daily, # 30 tablet, Refills 0, Maintenance, 01/03/22 14:57:00 EDT, Partial fill upon patient request if the prescription is for a schedule II opioid drug. Start Date: 01/03/22 Status: Ordered Vital Signs Most recent to oldest [Reference Range]: 1 Height 177 cm (01/03/22 2:47 PM) Pulse Rate [55-90 bpm] 82 bpm (01/03/22 2:47 PM) Blood Pressure [90-138/55-84 mm Hg] 129/75 mm Hg (01/03/22 2:47 PM) Temperature [96.8-100.4 DegF] 97.0 DegF (01/03/22 2:47 PM) Blood pressure sites Arm, right (01/03/22 2:47 PM) Temperature Route Temporal (01/03/22 2:47 PM) Patient Care team information PersonnelName: Not on Staff, PCP
--- OUTSIDE RECORDS SUMMARY | 2022-03-08 20:04 | XMS_ITS | Continuity of Care Document ---
:1990 Author Organization [address] [place] [address]- Care Team Providers Name Role Phone Not on Staff, PCP Primary Care Physician Unavailable Encounter [facility] Date(s): 12/13/21 - 01/26/[address] [place] [phone]- Attending Physician: Len Oliveira MD Allergies, Adverse Reactions, Alerts No Known Allergies Immunizations Given and Recorded Vaccine Date Status Refusal Reason SARS-CoV-2 (COVID-19) mRNA BNT-162b2 vac 03/31/21 Recorde d SARS-CoV-2 (COVID-19) mRNA BNT-162b2 vac 07/30/20 Recorde d SARS-CoV-2 (COVID-19) mRNA BNT-162b2 vac 07/07/20 Recorde d Medications acetaminophen 500 mg oral tablet 2 tablet = 1,000 mg, By Mouth, 3 times a day, # 180 tablet, 1 Refills, Maintenance, 01/24/22 13:50:00 EDT, [facility] #[id number], Partial fill upon patient request if the prescription is for a schedule IIopioid drug., 177, cm, 01/24/22 13:35:00 EDT, Hei... Start Date: 01/24/22 Stop Date: 03/26/22 Status: OrderedColace sodium 100 mg oral capsule 100 mg, 1, capsule, By Mouth, 2 times a day, # 28 capsule, Refills 0, Tot. Refills 0, Maintenance, 12/13/21 15:38:00 EDT, Route to Pharmacy Electronically, [facility], Partial fill upon patient request if the prescription is for a schedu... Start Date: 12/13/21 Stop Date: 12/27/21 Status: Orderedgabapentin 600 mg oral tablet 2 tablet = 1,200 mg, By Mouth, 3 times a day, # 180 tablet, 2 Refills, Maintenance, 01/24/22 13:53:00 EDT, Tablet, [facility]acy #[id number], Partial fill upon patient request if [...] EDT, Supply Start Date: 01/15/22 Status: Orderedibuprofen 800 mg oral tablet 800 [...]
--- OUTSIDE RECORDS SUMMARY | 2022-03-08 20:04 | XMS_ITS | Continuity of Care Document ---
:1990 Author Organization [facility] Address [address] [place] [address] Drive [address] [place] [address]- Care Team Providers Name Role Phone Not on Staff, PCP Primary Care Physician Unavailable Encounter [facility] Date(s): 01/24/22 - 01/31/[address] [place] [address]- Attending Physician: Marisa Laurent MD Allergies, Adverse Reactions, [...] tablet, 1 Refills, Maintenance, 01/24/22 13:50:00 EDT, [id number], Partial fill upon patient request if the prescription is for a schedule IIopioid drug., darrius Hogan, 01/24/22 13:35:00 EDT, Hei... Start Date: 01/24/22 Stop Date: 03/26/22 Status: Orderedgabapentin 600 mg oral tablet 2 tablet = 1,200 mg, By Mouth, 3 times a day, # 180 tablet, 2 Refills, Maintenance, 01/24/22 13:53:00 EDT, Tablet, [id number], Partial fill upon patient request if the prescription is for a schedule II opioid drug., Edison cm, 01/24/22 13:35:00... Start Date: 01/24/22 Status: [...] EDT, Supply Start Date: 01/15/22 Status: Ordered Vital Signs Most recent to oldest [Reference Range]: 1 Height 177 cm (01/24/22 1:35 PM) Pulse Rate [55-90 bpm] 82 bpm (01/24/22 1:35 PM) Blood Pressure [90-138/55-84 mm Hg] 115/83 mm Hg (01/24/22 1:35 PM) Temperature [96.8-100.4 DegF] 97.5 DegF (01/24/22 1:35 PM) Blood pressure sites Arm, left (01/24/22 1:35 PM) Temperature Route Temporal (01/24/22 1:35 PM) Patient Care team information PersonnelName: Not on Staff, PCP
--- OUTSIDE RECORDS SUMMARY | 2022-03-08 20:04 | XMS_ITS | Continuity of Care Document ---
:1990 Author Organization [facility] Address [address] [place] [address] Drive [address] [place] [address]- Care Team Providers Name Role Phone Not on Staff, PCP Primary Care Physician Unavailable Encounter [facility] Date(s): 02/05/22 - 02/12/[address] [place] [address]- Attending Physician: Nahid Sylvester MD Allergies, Adverse Reactions, Alerts No Known [...] 02/01/22 17:57:00 EDT, Route to Pharmacy Electronically, [facility], Partial fill upon patient request [...] 2 Refills, Maintenance, 01/24/22 13:53:00 EDT, Tablet, [facility][id number], Partial fill upon patient request [...]
--- OUTSIDE RECORDS SUMMARY | 2022-03-08 20:04 | XMS_ITS | Continuity of Care Document ---
:1990 Author Organization [facility] Address [address] [place] [address]- Care Team Providers Name Role Phone Not on Staff, PCP Primary Care Physician Unavailable [place] [facility] [place] 02/[place] [facility] [address] [place] [address]- [place] Allergies, Adverse Reactions, Alerts No Known [...] 02/01/22 17:56:00 EDT, Route to Pharmacy Electronically, [facility], Partial fill upo... Start Date: 02/01/22 Stop Date: 02/06/22 Status: OrderedColace sodium 100 mg oral capsule 100 mg, 1, capsule, By Mouth, 2 times a day, PRN, # 20 capsule, Refills 0, Tot. Refills 0, Maintenance, for constipation, 02/01/22 17:57:00 EDT, Route to Pharmacy Electronically, [facility], Partial fill upon patient request if the [...] 2 Refills, Maintenance, 01/24/22 13:53:00 EDT, Tablet, [facility]/pharmacy #[id number], Partial fill upon patient request if [...] 02/01/22 17:56:00 EDT, Route to Pharmacy Electronically, [facility], Partial fill upon patient re... Start Date: 02/01/22 Stop Date: 02/06/22 Status: Orderedibuprofen 600 mg oral tablet 600 mg, 1, tablet, By Mouth, Every 6 hours, PRN, for 5 days, # 20 tablet, Refills 0, Tot. Refills 0,Acute 02/06/22 17:57:00 EDT, for pain, 02/01/22 17:57:00 EDT, [facility], Partial fill upon patient re... [...] 02/04/22 17:57:00 EDT, 02/01/22 17:57:00 EDT, Tablet, [facility], Partial fillupon patient request if the [...]
--- OUTSIDE RECORDS SUMMARY | 2022-03-08 20:04 | XMS_ITS | Continuity of Care Document ---
:1990 Author Organization [facility] Address [address] [place] [address] Drive [address] [place] [address]- Care Team Providers Name Role Phone Not on Staff, PCP Primary Care Physician Unavailable Encounter [facility] Date(s): 02/06/22 - 02/13/[address] [place] [address]- Attending Physician: Marisa Laurent MD Allergies, Adverse [...] 02/01/22 17:57:00 EDT, Route to Pharmacy Electronically, [facility], Partial fill upon patient request if [...] 2 Refills, Maintenance, 01/24/22 13:53:00 EDT, Tablet, [facility] #[id number], Partial fill upon patient request [...] recent to oldest [Reference Range]: 1 Height 177.8 cm (02/06/22 2:06 PM) Pulse Rate [55-90 bpm] 104 bpm *H* (02/06/22 2:06 PM) Blood Pressure [90-138/55-84 mm Hg] 97/71 mm Hg (02/06/22 2:06 PM) Temperature [96.8-100.4 DegF] 98.0 DegF (02/06/22 2:06 PM) Blood pressure sites Arm, left (02/06/22 2:06 PM) Temperature Route Temporal (02/06/22 2:06 PM) Patient Care team information PersonnelName: Not on Staff, PCP"
--- OUTSIDE RECORDS SUMMARY | 2022-03-08 20:04 | XMS_ITS | Continuity of Care Document ---
:1990 Author Organization [facility] Address [address] [place] [address] Drive [address] [place] [address]- Care Team Providers Name Role Phone Cecille TRIMBLE, Shaji Valenzuela Primary Care Physician Encounter [facility] ACCT R [id number] Date(s): 02/22/22 - 03/01/[address] [place] [address]- Attending Physician: Avinash TRIMBLE, Lawson Allergies, Adverse Reactions, Alerts No Known Allergies [...] 02/01/22 17:57:00 EDT, Route to Pharmacy Electronically, [facility], Partial fill upon patient request if the [...] 2 Refills, Maintenance, 01/24/22 13:53:00 EDT, Tablet, [facility]/pharmacy #[id number], Partial fill upon patient request if [...] Care Team PersonnelName: Damaris Juarez RN Position: [facility] RN Member Role: Primary Care Nurse Name: Laurel Valencia RN Position: [facility] RN Member Role: Primary Care Nurse Name: Dayna Goyal RN Position: [facility] RN Member Role: Primary Care Nurse Name: Xuan Marte RN Position: [facility] RN Member Role: Primary Care Nurse Name: Mariana Rock Position: [facility] RN Member Role: Primary Care Nurse Name: Joselyn Martinez RN Position: [facility] RN Member Role: Primary Care Nurse Name: Eli Connors RN Position: [facility] RN Member Role: Primary Care Nurse Name: Olivier London RN Position: [facility] RN Member Role: Primary Care Nurse Name: Shaji Oden MD Position: [facility] Outreach Member Role: PCP Address: Address: [address] [place] [id number]- Name: Saman QUINTANA, Carli Position: [facility] RN Member Role: Primary Care Nurse Care Team Related PersonsName: CAMILLE BAMBI Address: home [address] [place] [address] Name: JASIEL WELSH Address: home [facility]
--- OUTSIDE RECORDS SUMMARY | 2022-03-08 20:04 | XMS_ITS | Continuity of Care Document ---
:1990 Author Organization [facility] Address [address] [place] [address] Drive [address] [place] [address]- Care Team Providers Name Role Phone Cecille TRIMBLE, Shaji Valenzuela Primary Care Physician Encounter [facility] Date(s): 02/15/22 - 02/22/[address] [place] [address]- Attending Physician: Avinash TRIMBLE, Lawson Allergies, Adverse [...] 02/01/22 17:57:00 EDT, Route to Pharmacy Electronically, [facility], Partial fill upon patient request if the [...] 2 Refills, Maintenance, 01/24/22 13:53:00 EDT, Tablet, [facility]/pharmacy #[id number], Partial fill upon patient request if [...] Compartment Confirmed 02/15/22 Active syndrome Right leg Vital Signs Most recent to oldest [Reference Range]: 1 Height 177.8 cm (02/15/22 1:46 PM) Pulse Rate [55-90 bpm] 72 bpm (02/15/22 1:46 PM) Blood Pressure [90-138/55-84 mm Hg] 110/72 mm Hg (02/15/22 1:46 PM) Temperature [96.8-100.4 DegF] 97.1 DegF (02/15/22 1:46 PM) Blood pressure sites Arm, left (02/15/22 1:46 PM) Temperature Route Temporal (02/15/22 1:46 PM) Patient Care team information Care Team PersonnelName: Damaris Juarez RN Position: [facility] RN Member Role: Primary Care Nurse Name: Laurel Valencia RN Position: [facility] RN Member Role: Primary Care Nurse Name: Dayna Goyal RN Position: [facility] RN Member Role: Primary Care Nurse Name: Xuan Marte RN Position: [facility] RN Member Role: Primary Care Nurse Name: Mariana Rock Position: [facility] RN Member Role: Primary Care Nurse Name: Joselyn Martinez RN Position: [facility] RN Member Role: Primary Care Nurse Name: Eli Connors RN Position: [facility] RN Member Role: Primary Care Nurse Name: Olivier London RN Position: [facility] RN Member Role: Primary Care Nurse Name: Shaji Oden MD Position: [facility] Outreach Member Role: PCP Address: Address: [address] [place] [id number]- Name: Carli Davison RN Position: [facility] RN Member Role: Primary Care Nurse Care Team Related PersonsName: BAMBI OBRIEN Address: home [address] [place] [address] Name: JASIEL WELSH Address: home [facility]
[2022-03-08 20:16] LABS: MANUAL DIFF FLAG NO
[2022-03-08 20:19] LABS: Basophils Absolute Auto 0.1 X10*3/uL (0.0-0.2); Basophils Percent Auto 0.6 % (0-2); Eosinophils Absolute Auto 0.1 X10*3/uL (0.0-0.4); Eosinophils Percent Auto 1.3 % (0-4); Hematocrit 44.7 % (42.0-52.0); Hemoglobin 15.1 g/dl (14.0-18.0); Imm Gran Abs Auto 0.03 X10*3/uL (0.00-0.03); Imm Gran Pct Auto 0.4 % (0.0-0.4); Lymphocytes Absolute Auto 1.5 X10*3/uL (1.2-4.9); Lymphocytes Percent Auto 18.6 % (20-40); Mean Corpuscular HGB Conc 33.8 g/dl (31.0-36.0); Mean Corpuscular Hemoglobin 32.2 pg (27.0-33.0); Mean Corpuscular Volume 95.3 fL (80.0-98.0); Monocytes Absolute Auto 0.6 X10*3/uL (0.1-1.2); Monocytes Percent Auto 7.8 % (2-11); Neutrophils Absolute Auto 5.8 x10*3/uL (2.0-8.3); Neutrophils Percent Auto 71.3 % (45-73); Platelet Count 258 X10*3/uL (160-400); Red Blood Count 4.69 X10*6/uL (4.60-5.80); Red Cell Distribution Width 12.4 % (11.0-16.0); White Blood Count 8.2 X10*3/uL (4.8-10.8)
[2022-03-08 20:35] LABS: Alanine Aminotransferase 15 U/L (0-40); Albumin Level 4.7 g/dL (3.5-5.0); Alkaline Phosphatase 54 U/L (39-117); Anion Gap 19 (12-20); Aspartate Amino Transferase 20 U/L (5-37); Bilirubin Total 0.4 mg/dL (0.0-1.0); Blood Urea Nitrogen 11 mg/dL (9-16); Calcium 9.4 mg/dL (8.4-10.2); Carbon Dioxide 23 mmol/L (22-29); Chloride 105 mmol/L (96-108); Creatinine Clr Calc Pharmacy 132.3; Estimated Glomerular Filt Rate > 60; Ethanol 135 mg/dL; Glucose Random 96 mg/dL (60-115); Magnesium 1.8 mg/dL (1.6-2.6); Potassium 3.8 mmol/L (3.3-5.1); Sodium 143 mmol/L (135-145); Total Protein 7.2 g/dL (6.5-8.0)
[2022-03-08 20:50] LABS: COVID-19 Test Negative (Negative)
[2022-03-08 21:09] LABS: Acetaminophen LAB < 1 mcg/mL (<30); Salicylate < 5.0 mg/dL (15-30)
[2022-03-08] MEDS: Midazolam HCl/PF 2 MG/2 ML VIAL IM (22:26)
[2022-03-08] MEDS: diphenhydrAMINE HCL 50 MG/ML VIAL IM (22:26)
[2022-03-08] MEDS: Haloperidol Lactate 5 MG/ML VIAL IM (22:26)
--- NOTE | 2022-03-08 22:39 | PC.NURSE ---
Patient is agitated, combative, threatening staff. Patient kicking, screaming. Haldol 5 mg IM, Benadryl 50 mg IM and Versed 2 mg IM administered per MD order.
[2022-03-08 22:58] LABS: Appearance Urine Clear; Color Urine Yellow; Glucose Urine UA Negative (Negative); Leukocyte Esterase Urine Negative (Negative); Nitrite Urine Negative (Negative); PH 5.5 (5.0-9.0); Urine Blood Negative (Negative); Urine Ketones Negative (Negative); Urine Protein Negative (Neg-Trace)
[2022-03-08 23:08] LABS: Amphetamine Screen Urine Not Detected (Not Detect); Barbiturates, Urine Not Detected (Not Detect); Benzodiazepines Screen Urine Not Detected (Not Detect); Cannabinoid Screen Urine POSITIVE (Not Detect); Cocaine Screen Urine Not Detected (Not Detect); Fentanyl, urine Not Detected (Not Detect); Opiate Screen Urine POSITIVE (Not Detect); Phencyclidine Screen Urine Not Detected (Not Detect)
[2022-03-09 01:25] VITALS: BP 101/64; PULSE 64; RESP 16; O2SAT 96
--- NOTE | 2022-03-09 02:09 | PC.NURSE ---
Patient is sleeping, VSS, no s/s of acute distress noted.
[2022-03-09] MEDS: LORazepam 1 MG TABLET 2 MG PO (04:22)
--- NOTE | 2022-03-09 06:48 | PC.NURSE ---
Patient received Lorazepam 2 mg for s/s of anxiety/feeling angry-patient requesting to go home now. Patient advised to to wait for [facility]/crisis team evaluation in am. Patient resting quietly after receiving dose of Lorazepam, RR 16, no s/s of distress noted.
--- NOTE | 2022-03-09 07:05 | PC.NURSE ---
[facility] smart sheet referral form completed.
[2022-03-09 07:26] VITALS: BP 108/60; PULSE 68; RESP 15; TEMP 37.1; O2SAT 95
--- NOTE | 2022-03-09 09:15 | PC.NURSE ---
pt is a/o x 4 no sob/lexii noted pt is loud, boisterous and states that he is angry that he is here. md at bedside. pt states that he states a lot of meds for his s/p wound/surgery to his r lower leg. pt states that he don't need to be here .
[2022-03-09] MEDS: Gabapentin 600 MG TABLET 1200 MG PO (09:29)
[2022-03-09] MEDS: Ibuprofen 800 MG TABLET PO (09:29)
[2022-03-09] MEDS: Morphine Sulfate Immed Release 15 MG TABLET 30 MG PO (09:29)
--- NOTE | 2022-03-09 09:43 | PC.NURSE ---
care -team jill at bedside.
[2022-03-09 10:00] VITALS: RESP 16
--- NOTE | 2022-03-09 10:04 | PHA.MEDREC ---
Pharmacy Consult ? Medication Reconciliation Pharmacy has completed the medication reconciliation.
--- NOTE | 2022-03-09 11:22 | PC.NURSE ---
pt is being seen by [facility], pt aware of plan of care.
--- NOTE | 2022-03-09 11:43 | PC.NURSE ---
PT BELONGINGS IN [facility] PER SECURITY
[2022-03-09 11:53] VITALS: BP 105/86; PULSE 75; RESP 14; TEMP 37; O2SAT 95
== END 2022-03-09 12:48 | disposition home or self-care (01) ==
PROVIDERS: Physician Assistant; Emergency Provider Emergency Medicine Emergency Medical Services
DX: F23 Brief psychotic disorder (principal); F10.120 Alcohol abuse with intoxication, uncomplicated; Y90.6 Blood alcohol level of 120-199 mg/100 ml; R45.851 Suicidal ideations; R45.1 Restlessness and agitation; R45.6 Violent behavior; Z20.822 Contact with and (suspected) exposure to COVID-19; F19.10 Other psychoactive substance abuse, uncomplicated; Z72.89 Other problems related to lifestyle; Z63.4 Disappearance and death of family member; Z79.899 Other long term (current) drug therapy
CPT/HCPCS: 36415; 80053; 80143; 80179; 80307; 81003; 82077; 82550; 83735; 85025; 87635; 96372; 99285; J1200; J2250

== ENCOUNTER 2022-04-03 10:00 | Outpatient (RCR) | payer OTHER, SELFPAY | END 2022-05-04 14:05 | disposition home or self-care (01) | LOC: HO.PT 10:00 | PROVIDERS: PCP Internal Medicine; Visit Provider Surgery | DX: T79.A21D Traumatic compartment syndrome of right lower extremity, subsequent encounter (principal) | CPT/HCPCS: 97110; 97162; 97530 ==